=== PATIENT | female | born 1985 | race Caucasian/White ===

== ENCOUNTER 2016-06-26 06:53 | Inpatient (IN) | payer BC ==
[2016-06-26] MEDS ORDERED: fentaNYL 100 MCG/2 ML SDV IVPUSH PRN (07:50)
[2016-06-26] MEDS ORDERED: Sodium Chloride 0.9% 10 ML Syringe FLUSH PRN (07:50)
[2016-06-26] MEDS ORDERED: Ondansetron 4 MG/2 ML SDV IV PRN (07:50)
[2016-06-26] MEDS ORDERED: Acetaminophen 325 MG Tab PO PRN (07:50)
[2016-06-26] MEDS ORDERED: Calcium Carbonate 500 MG Tab.Chew PO PRN (07:50)
[2016-06-26] MEDS ORDERED: Misoprostol 50 MCG (1/2 of 100 MCG) Tab ONE (07:59)
--- NOTE | 2016-06-26 08:14 | PCM.LDHP ---
L&D History of Present Illness - General Date of Service: 06/26/16 (GLORIA-06/23/2016) Admit Problem/Dx: Patient Status Order with Admit Dx/Problem 06/26/16 07:00 Admission Status [Patient Status] [ADT] Routine Patient Status: Refer to Observation Admission Diagnosis/Problem: Reason for Admit: induction of labor Nurse Unit Type: Labor and Delivery Admitting Physician: Justyna Ahn Attending Physician: Justyna Ahn Medicare 96 Hour Certification Statement: This Patient is Admitted for Inpatient Services and is Medically Appropriate and Meets Medical Necessity for Inpatient Admission. I Reasonably Expect the Patient Will Require Inpatient Services That Span a Period of Time Over 2 Midnights. My Rationale for Medically Necessary Inpatient Care Will Be Found in the Admission History & Physical and Progress Notes. I Reasonably Expect the Patient to be Discharged or Transferred Within 96 Hours After Admission to This [facility]. 06/26/16 07:51 Patient Status [ADT] Routine Patient Status: Refer to Observation Admission Diagnosis/Problem: Reason for Admit: Induction of Labor Nurse Unit Type: Labor and Delivery Admitting Physician: Justyna Ahn Attending Physician: Justyna Ahn Medicare 96 Hour Certification Statement: This Patient is Admitted for Inpatient Services and is Medically Appropriate and Meets Medical Necessity for Inpatient Admission. I Reasonably Expect the Patient Will Require Inpatient Services That Span a Period of Time Over 2 Midnights. My Rationale for Medically Necessary Inpatient Care Will Be Found in the Admission History & Physical and Progress Notes. I Reasonably Expect the Patient to be Discharged or Transferred Within 96 Hours After Admission to This [facility]. Admission Diagnosis/Problem Admission Diagnosis/Problem Source of Information: Patient History Limitations: Reports: No limitations - History of Present Illness Associated Symptoms: Reports: N - Related Data Allergies/Adverse Reactions: Allergies Allergy/AdvReac Type Severity Reaction Status Date / Time codeine AdvReac Intermediate Vomiting Verified 04/20/14 22:33 Home Medications: Home Meds Docosahexanoic Acid [DHA] 100 mg PO DAILY 04/20/14 [History] Ferrous Gluconate 1 tab PO BID 04/20/14 [History] PNV95/Ferrous Fumarate/FA [ Multivitamins] 1 each PO DAILY 04/20/14 [ History] Ibuprofen [Motrin] 600 mg PO Q6H #1 tablet 04/22/14 [Rx] Past Medical History [employer] History: Reports: : 3 Para: 2 Other OB/BYN History: GLORIA-06/23/2016 Social & Family History - Tobacco Use Smoking Status *Q: Never Smoker - Alcohol Use Days Per Week of Alcohol Use: 0 - Recreational Drug Use Recreational Drug Use: No H&P Review of Systems - Review of Systems: Review Of Systems: See Below General: Reports: no symptoms HEENT: Reports: no symptoms Pulmonary: Reports: No Symptoms Cardiovascular: Reports: no symptoms Gastrointestinal: Reports: No symptoms Genitourinary: Reports: no symptoms Musculoskeletal: Reports: no symptoms Skin: Reports: no symptoms Psychiatric: Reports: no symptoms Neurological: Reports: No Symptoms Hematologic/Lymphatic: Reports: no symptoms Immunologic: Reports: no symptoms L&D Exam - Exam Exam: See Below - Vital Signs Weight: 99.79 kg - OB Specific movement: active heart tones: present - Winslow Score Winslow Score Cervix Position: Midposition Winslow Score Consistency: Soft Winslow Score Effacement: 51-70% Winslow Score Dilation: 1-2 cm Winslow Score Infant's Station: -2 Winslow Score Total: 7 - Exam General: alert, oriented HEENT: PERRLA, Conjunctiva clear, EACs clear, EOMI, Hearing intact, Mucosa moist & pink, Nares patent, Normal nasal septum, Posterior pharynx clear, Pupils equal, Pupils reactive, TMs clear Neck: supple, trachea midline Lungs: Clear to auscultation, Normal respiratory effort Cardiovascular: regular rate, regular rhythm Abdomen: normal bowel sounds, soft Genitourinary: Normal external exam Back Exam: normal inspection, full range of motion Extremities: normal inspection Skin: warm, dry, intact Neurological: cranial nerves intact, reflexes equal bilateral DTR: 2+: patella (L), patella (R) Psychiatric: alert, normal affect, normal mood - Patient Data Lab Results last 24 hrs: Laboratory Results - last 24 hr 06/26/16 06/26/16 06/26/16 Range/Units 07:23 07:24 07:30 WBC 9.0 (4.5-11.0) K/uL RBC 3.98 (3.30-5.50) M/uL Hgb 11.5 L (12.0-15.0) g/dL Hct 34.2 L (36.0-48.0) % MCV 86 (80-98) fL MCH 29 (27-31) pg MCHC 34 (32-36) % Plt Count 198 (150-400) K/uL Urine Color Yellow Urine Appearance Slightly cloudy Urine pH 6.5 (4.5-8.0) Ur Specific [place] 1.015 (1.008-1.030) Urine Protein Negative (NEGATIVE) mg/dL Urine Glucose (UA) Normal (NEGATIVE) mg/dL Urine Ketones Negative (NEGATIVE) mg/dL Urine Occult Blood Negative (NEGATIVE) Urine Nitrite Negative (NEGATIVE) Urine Bilirubin Negative (NEGATIVE) Urine Urobilinogen Normal (NORMAL) mg/dL Ur Leukocyte Esterase Negative (NEGATIVE) Urine RBC Not seen (0-5) Urine WBC Not seen (0-5) Ur Epithelial Cells Moderate Amorphous Sediment Not seen Urine Bacteria Rare Urine Mucus Moderate Urine Opiates Screen Negative (NEGATIVE) Ur Oxycodone Screen Negative (NEGATIVE) Urine Methadone Screen Negative (NEGATIVE) Ur Propoxyphene Screen Negative (NEGATIVE) Ur Barbiturates Screen Negative (NEGATIVE) Ur Tricyclics Screen Negative (NEGATIVE) Ur Phencyclidine Scrn Negative (NEGATIVE) Ur Amphetamine Screen Negative (NEGATIVE) U Methamphetamines Scrn Negative (NEGATIVE) Urine MDMA Screen Negative (NEGATIVE) U Benzodiazepines Scrn Negative (NEGATIVE) U Cocaine Metab Screen Negative (NEGATIVE) U Marijuana (THC) Screen Negative (NEGATIVE) Result Diagrams: 06/26/16 07:30 - Problem List (1) Positive GBS test SNOMED Code(s): 4007634515286, 4756161822022 ICD Code: B95.1 - STREPTOCOCCUS, GROUP B, CAUSING DISEASES CLASSD ELSWHR Status: Acute Current Visit: Yes (2) Elective induction of labor planned SNOMED Code(s): 148702278 ICD Code: EUF6045 - Status: Acute Current Visit: Yes (3) SNOMED Code(s): 76754927 ICD Code: Z33.1 - STATE, INCIDENTAL Status: Acute Current Visit : Yes Qualifiers: Weeks of gestation: 40 weeks Qualified Code(s): Z3A.40 - 40 weeks gestation of (4) Anemia of SNOMED Code(s): 71968918 ICD Code: O99.019 - ANEMIA COMPLICATING , UNSPECIFIED TRIMESTER Status: Chronic Priority: Medium Current Visit: No Problem List Initiated/Reviewed/Updated: Yes Orders Last 24hrs: Active Orders 24 hr Category Date Time Status Admission Status [Patient Status] [ADT] Routine ADT 06/26/16 07:00 Active Patient Status [ADT] Routine ADT 06/26/16 07:51 Ordered Ambulate [RC] PER UNIT ROUTINE Care 06/26/16 07:50 Ordered Bathe Patient [RC] ASDIRECTED Care 06/26/16 07:50 Ordered Communication Order [RC] ASDIRECTED Care 06/26/16 07:51 Ordered Heart Tones [RC] PER UNIT ROUTINE Care 06/26/16 07:51 Ordered Intake and Output [RC] PRN Care 06/26/16 07:50 Ordered May Shower [RC] ASDIRECTED Care 06/26/16 07:50 Ordered Notify Provider Vital Signs [RC] PRN Care 06/26/16 07:50 Ordered Notify Provider [RC] PRN Care 06/26/16 07:51 Ordered Up ad Chacorta [RC] ASDIRECTED Care 06/26/16 07:50 Ordered VTE/DVT Education [RC] Click to Edit Care 06/26/16 07:54 Ordered Vital Signs [RC] PER UNIT ROUTINE Care 06/26/16 07:51 Ordered CBC WITH AUTO DIFF [HEME] Routine Lab 06/27/16 06:00 Ordered Acetaminophen [Tylenol] Med 06/26/16 07:50 Ordered 650 mg PO Q4H PRN Calcium Carbonate [Tums] Med 06/26/16 07:50 Ordered 1,000 mg PO Q2HR PRN Misoprostol [Cytotec] Med 06/26/16 07:55 Once 50 mcg VAG ONETIME ONE Ondansetron [Zofran] Med 06/26/16 07:50 Ordered 4 mg IV Q4H PRN Penicillin G Potassium [Pfizerpen] 2.5 millunits Med 06/26/16 12:30 Ordered Sodium Chloride 0.9% [Normal Saline] 100 ml IV Q4H Penicillin G Potassium [Pfizerpen] 5 millunits Med 06/26/16 07:57 Ordered Sodium Chloride 0.9% [Normal Saline] 100 ml IV ONETIME Sodium Chloride 0.9% [Saline Flush] Med 06/26/16 07:50 Ordered 10 ml FLUSH ASDIRECTED PRN fentaNYL [Sublimaze] Med 06/26/16 07:50 Ordered 100 mcg IVPUSH Q1H PRN DVT/VTE Prophylaxis Reflex [OM.PC] Routine Oth 06/26/16 07:50 Ordered Saline Lock Insert [OM.PC] Routine Oth 06/26/16 07:51 Ordered Resuscitation Status Routine Resus Stat 06/26/16 07:50 Ordered Medication Orders Acetaminophen (Tylenol) 650 mg PO Q4H PRN PRN Reason: Pain (Mild 1-3) and fever Calcium Carbonate/Glycine (Tums) 1,000 mg PO Q2H PRN PRN Reason: Indigestion Fentanyl (Sublimaze) 100 mcg IVPUSH Q1H PRN PRN Reason: Pain (moderate 4-6) Penicillin G Potassium 5 (millunits/ Sodium Chloride) 100 mls @ 100 mls/hr IV ONETIME ONE Stop: 06/26/16 09:29 Penicillin G Potassium 2.5 (millunits/ Sodium Chloride) 50 mls @ 100 mls/hr IV Q4H BRYAN Misoprostol (Cytotec) 50 mcg VAG ONETIME ONE Stop: 06/26/16 08:16 Last Admin: 06/26/16 08:00 Dose: 50 mcg Ondansetron HCl (Zofran) 4 mg IV Q4H PRN PRN Reason: Nausea/Vomiting Sodium Chloride (Saline Flush) 10 ml FLUSH ASDIRECTED PRN PRN Reason: Keep Vein Open Assessment/Plan Comment:: 06/26/2016 31 yo at 40 3/7 weeks gestation with an GLORIA 06/23/2016 here for an elective induction SVE 2/70/-2 [place]-7 Cytotec-50mcg placed for induction FHTS category one Only occasional contraction noted before placement of cytotec Labs-A positive, Rubella Immune, RPR nonreactive, Hep B negative, HIV negative, GBS positive Plan- Monitor for active labor PCN G IV for GBS positive Pain management per patient request Up ad chacorta Intermittent FHT Regular diet Plan for a vaginal delivery
[2016-06-26] MEDS ORDERED: Misoprostol 50 MCG (1/2 of 100 MCG) Tab VAG ONE (08:15)
[2016-06-26] MEDS ORDERED: Penicillin G Potassium 5 MILLUNITS in Sodium Chloride 0.9% 100 ML IV ONE (08:30)
[2016-06-26] MEDS: Penicillin G Potassium 2.5 MILLUNITS in Sodium Chloride 0.9% 50 ML IV SCH ×2 (11:53→16:53)
--- NOTE | 2016-06-26 12:36 | PCM.PNLD ---
Labor Progress Note - VS & Meds Vital Signs: Last Vital Signs Temp 36.9 C 06/26/16 12:00 Pulse 82 06/26/16 12:00 Resp 16 06/26/16 12:00 BP 117/70 06/26/16 12:00 Pulse Ox 96 06/26/16 12:00 Active Medications: Current Medications Acetaminophen (Tylenol) 650 mg PO Q4H PRN PRN Reason: Pain (Mild 1-3) and fever Calcium Carbonate/Glycine (Tums) 1,000 mg PO Q2H PRN PRN Reason: Indigestion Fentanyl (Sublimaze) 100 mcg IVPUSH Q1H PRN PRN Reason: Pain (moderate 4-6) Penicillin G Potassium 2.5 (millunits/ Sodium Chloride) 50 mls @ 100 mls/hr IV Q4H BRYAN Last Admin: 06/26/16 11:53 Dose: 100 mls/hr Ondansetron HCl (Zofran) 4 mg IV Q4H PRN PRN Reason: Nausea/Vomiting Sodium Chloride (Saline Flush) 10 ml FLUSH ASDIRECTED PRN PRN Reason: Keep Vein Open Discontinued Medications Penicillin G Potassium 5 (millunits/ Sodium Chloride) 100 mls @ 100 mls/hr IV ONETIME ONE Stop: 06/26/16 09:29 Last Admin: 06/26/16 08:35 Dose: 100 mls/hr Misoprostol (Cytotec) 50 mcg VAG ONETIME ONE Stop: 06/26/16 08:16 Last Admin: 06/26/16 08:00 Dose: 50 mcg Misoprostol (Cytotec) Confirm Administered Dose 50 mcg .ROUTE .STK-MED ONE Stop: 06/26/16 08:00 Last Admin: 06/26/16 08:36 Dose: Not Given - Uterine Contractions Uterine Monitoring Mode: External [place] Contraction Frequency (min): 2-3 Contraction Duration (sec): 110 Contraction Intensity: Mild Uterine Resting Tone: Soft - Monitoring Monitor Mode: External Ultrasound - Vaginal Exam Dilation (cm): 3-4 Effacement (Percent): 80 Station: -2 Cervical Position: Anterior Sterile Vaginal Exam Performed By: Justyna Ahn Vaginal Exam Comment: cytotec placed - Labor Progress (Free Text) Labor Progress: 06/24/2016 SVE 3-4/80/-1 Labor progressing nicely Ctx every 2-3 minutes Penicillin times two doses will continue till delivery for GBS positive Plan- Continue to monitor for active labor Continue PCN per orders and protocol Pain management per patient request Plan for a vaginal delivery
[2016-06-26] MEDS ORDERED: Misoprostol 200 MCG Tab ONE (16:13)
[2016-06-26] MEDS ORDERED: Lidocaine 1% 50 ML MDV ONE (16:14)
[2016-06-26] MEDS ORDERED: Methylergonovine 0.2 MG/1 ML Amp ONE (16:14)
[2016-06-26] MEDS ORDERED: Lanolin 100% Cream 40 GM Tube TOP PRN (17:11)
[2016-06-26] MEDS ORDERED: Acetaminophen/HYDROcodone 325-5 MG Tab PO PRN (17:11)
[2016-06-26] MEDS ORDERED: Witch Hazel Medicated Pads 100/Jar TOP PRN (17:11)
[2016-06-26] MEDS ORDERED: Benzocaine 20% Top Spray 56 GM Bottle TOP PRN (17:11)
--- NOTE | 2016-06-26 17:11 | PCM.PNLD ---
Labor Progress Note - VS & Meds Vital Signs: Last Vital Signs Temp 36.9 C 06/26/16 12:00 Pulse 82 06/26/16 12:00 Resp 16 06/26/16 12:00 BP 117/70 06/26/16 12:00 Pulse Ox 96 06/26/16 12:00 Active Medications: Current Medications Acetaminophen (Tylenol) 650 mg PO Q4H PRN PRN Reason: Pain (Mild 1-3) and fever Calcium Carbonate/Glycine (Tums) 1,000 mg PO Q2H PRN PRN Reason: Indigestion Fentanyl (Sublimaze) 100 mcg IVPUSH Q1H PRN PRN Reason: Pain (moderate 4-6) Last Admin: 06/26/16 15:08 Dose: 100 mcg Penicillin G Potassium 2.5 (millunits/ Sodium Chloride) 50 mls @ 100 mls/hr IV Q4H BRYAN Last Admin: 06/26/16 16:53 Dose: Not Given Ondansetron HCl (Zofran) 4 mg IV Q4H PRN PRN Reason: Nausea/Vomiting Last Admin: 06/26/16 14:53 Dose: 4 mg Sodium Chloride (Saline Flush) 10 ml FLUSH ASDIRECTED PRN PRN Reason: Keep Vein Open Discontinued Medications Penicillin G Potassium 5 (millunits/ Sodium Chloride) 100 mls @ 100 mls/hr IV ONETIME ONE Stop: 06/26/16 09:29 Last Admin: 06/26/16 08:35 Dose: 100 mls/hr Oxytocin/Sodium Chloride (Pitocin In Ns 20 Units/1,000 Ml) Confirm Administered Dose 20 unit in 1,000 mls @ as directed .ROUTE .STK-MED ONE Stop: 06/26/16 13:11 Last Admin: 06/26/16 16:12 Dose: 999 unit Lidocaine HCl (Xylocaine 1%) Confirm Administered Dose 100 ml .ROUTE .STK-MED ONE Stop: 06/26/16 16:15 Last Admin: 06/26/16 16:51 Dose: Not Given Methylergonovine Maleate (Methergine) Confirm Administered Dose 0.2 mg .ROUTE .STK-MED ONE Stop: 06/26/16 16:15 Last Admin: 06/26/16 16:52 Dose: Not Given Misoprostol (Cytotec) 50 mcg VAG ONETIME ONE Stop: 06/26/16 08:16 Last Admin: 06/26/16 08:00 Dose: 50 mcg Misoprostol (Cytotec) Confirm Administered Dose 50 mcg .ROUTE .STK-MED ONE Stop: 06/26/16 08:00 Last Admin: 06/26/16 08:36 Dose: Not Given Misoprostol (Cytotec) Confirm Administered Dose 800 mcg .ROUTE .STK-MED ONE Stop: 06/26/16 16:14 Last Admin: 06/26/16 16:52 Dose: Not Given - Uterine Contractions Uterine Monitoring Mode: External [place] Contraction Frequency (min): 2-4 Contraction Duration (sec): 70 Contraction Intensity: Moderate to Strong Uterine Resting Tone: Soft - Monitoring Monitor Mode: External Ultrasound - Vaginal Exam Dilation (cm): 7 Effacement (Percent): 95 Station: 0 Cervical Position: Midposition Sterile Vaginal Exam Performed By: Justyna Ahn Vaginal Exam Comment: recheck by debby fentanyl given - Labor Progress (Free Text) Labor Progress: 06/26/2016 @ approx 1520 Nurse called stating maybe felt caput-CNM came and SVE 6-7 caput/90/-1 Clear fluid moderately leaking Tolerating pain with position, tub, and IV medications Continue to monitor FHTs and CTX Pain management per patient request Plan for a vaginal delivery
--- NOTE | 2016-06-26 17:31 | PCM.DEL ---
L & D Note - General Info Date of Service: 06/26/16 Mother's Due Date: 06/23/16 - Delivery Note Labor: induced by ARM (cytotec times one dose) Cervical Ripening Method: Misoprostil Delivery Outcome: Livebirth Infant Delivery Method: Spontaneous Vaginal Delivery Delivery Mode: Spontaneous Presentation: Left Occiput Anterior (KOFI) Nuchal cord: none Anesthesia Type: None Amniotic Fluid Description: Clear Episiotomy Type: None Laceration: other (two labial skid yuan note repaired, not bleeding) Placenta: intact, spontaneous Cord: 3 vessels Estimated blood loss: 300 : bulb syringe, stimulated, warmed, blanket used, warmer used Score 1 min: 7 Score 5 min: 8 Score 10 min: 8 Post Delivery Events: Shoulder Dystocia Second Stage Interventions: Reports: Encouragement Given, Pushing Effectively, Pushing, McRobert's Position, Pushing, Stirrups/Leg Supports Delivery Comments (Free Text/Narrative):: 06/26/2016 31 yo G3 now P3 @ 40 3/7 gestational weeks delivered @ 1611 a viable male by normal spontaneous vaginal in KOFI position. Shoulder dystocia was noted after delivery of head at 1610 and no release of shoulder. Bed was placed flat, staff assist button was hit, Mylene and Suprapubic pressure was used and anterior shoulder was released after 60 seconds. Infant was then placed on mothers abdomen, dried, stimulated, and cord was double clamped and cut by CNM then was taken to warmer for initial assessment. APGARS- 7/8/8, Weight- 9lbs 15 oz, Length 21.5 inches, 3 vessel cord. began to cry vigorously and pink up in color on warmer. Placenta then came spontaneously intact. Two small skid yuan on each side of labia, not bleeding and not repaired. No lacerations noted to cervix, rectum, or perineum. EBL 300ml. Mother stable in labor room with now skin to skin. Possible crepitus in left clavicle of infant-will Xray and follow results. - General Info Date of Service: 06/26/16 Admission Dx/Problem (Free Text): Patient Status Order with Admit Dx/Problem 06/26/16 07:00 Admission Status [Patient Status] [ADT] Routine Patient Status: Refer to Observation Admission Diagnosis/Problem: Reason for Admit: induction of labor Nurse Unit Type: Labor and Delivery Admitting Physician: Justyna Ahn Attending Physician: Justyna Ahn Medicare 96 Hour Certification Statement: This Patient is Admitted for Inpatient Services and is Medically Appropriate and Meets Medical Necessity for Inpatient Admission. I Reasonably Expect the Patient Will Require Inpatient Services That Span a Period of Time Over 2 Midnights. My Rationale for Medically Necessary Inpatient Care Will Be Found in the Admission History & Physical and Progress Notes. I Reasonably Expect the Patient to be Discharged or Transferred Within 96 Hours After Admission to This [facility]. 06/26/16 07:51 Patient Status [ADT] Routine Patient Status: Refer to Observation Admission Diagnosis/Problem: Reason for Admit: Induction of Labor Nurse Unit Type: Labor and Delivery Admitting Physician: Justyna Ahn Attending Physician: Justyna Ahn Medicare 96 Hour Certification Statement: This Patient is Admitted for Inpatient Services and is Medically Appropriate and Meets Medical Necessity for Inpatient Admission. I Reasonably Expect the Patient Will Require Inpatient Services That Span a Period of Time Over 2 Midnights. My Rationale for Medically Necessary Inpatient Care Will Be Found in the Admission History & Physical and Progress Notes. I Reasonably Expect the Patient to be Discharged or Transferred Within 96 Hours After Admission to This [facility]. Admission Diagnosis/Problem Admission Diagnosis/Problem Functional Status: Reports: pain controlled - Review of Systems General: Reports: No Symptoms HEENT: Reports: no symptoms Pulmonary: Reports: no symptoms Cardiovascular: Reports: No Symptoms Gastrointestinal: Reports: No symptoms Genitourinary: Reports: no symptoms Musculoskeletal: Reports: no symptoms Skin: Reports: no symptoms Neurological: Reports: No Symptoms Psychiatric: Reports: no symptoms - Patient Data Vitals - most recent: Last Vital Signs Temp 36.9 C 06/26/16 12:00 Pulse 82 06/26/16 12:00 Resp 16 06/26/16 12:00 BP 117/70 06/26/16 12:00 Pulse Ox 96 06/26/16 12:00 Weight - most recent: 99.79 kg I&O - last 24 hours: Intake & Output 06/26/16 06/26/16 06/26/16 06:59 14:59 22:59 Intake Total 150 Balance 150 Lab Results last 24 hrs: Laboratory Results - last 24 hr 06/26/16 06/26/1606/26/17 Range/Units 07:23 07:24 07:30 WBC 9.0 (4.5-11.0) K/uL RBC 3.98 (3.30-5.50) M/uL Hgb 11.5 L (12.0-15.0) g/dL Hct 34.2 L (36.0-48.0) % MCV 86 (80-98) fL MCH 29 (27-31) pg MCHC 34 (32-36) % Plt Count 198 (150-400) K/uL Urine Color Yellow Urine Appearance Slightly cloudy Urine pH 6.5 (4.5-8.0) Ur Specific [place] 1.015 (1.008-1.030) Urine Protein Negative (NEGATIVE) mg/dL Urine Glucose (UA) Normal (NEGATIVE) mg/dL Urine Ketones Negative (NEGATIVE) mg/dL Urine Occult Blood Negative (NEGATIVE) Urine Nitrite Negative (NEGATIVE) Urine Bilirubin Negative (NEGATIVE) Urine Urobilinogen Normal (NORMAL) mg/dL Ur Leukocyte Esterase Negative (NEGATIVE) Urine RBC Not seen (0-5) Urine WBC Not seen (0-5) Ur Epithelial Cells Moderate Amorphous Sediment Not seen Urine Bacteria Rare Urine Mucus Moderate Urine Opiates Screen Negative (NEGATIVE) Ur Oxycodone Screen Negative (NEGATIVE) Urine Methadone Screen Negative (NEGATIVE) Ur Propoxyphene Screen Negative (NEGATIVE) Ur Barbiturates Screen Negative (NEGATIVE) Ur Tricyclics Screen Negative (NEGATIVE) Ur Phencyclidine Scrn Negative (NEGATIVE) Ur Amphetamine Screen Negative (NEGATIVE) U Methamphetamines Scrn Negative (NEGATIVE) Urine MDMA Screen Negative (NEGATIVE) U Benzodiazepines Scrn Negative (NEGATIVE) U Cocaine Metab Screen Negative (NEGATIVE) U Marijuana (THC) Screen Negative (NEGATIVE) Med Orders - Current: Current Medications Acetaminophen (Tylenol) 650 mg PO Q4H PRN PRN Reason: Pain (Mild 1-3) and fever Hydrocodone Bitart/Acetaminophen (Zap 325-5 Mg) 1 - 2 tab PO Q4H PRN PRN Reason: Pain (moderate 4-6) Benzocaine (Qyya-S-Nkrjvab 20% [place]) 0 gm TOP Q4H PRN PRN Reason: Perineal Comfort Measure Calcium Carbonate/Glycine (Tums) 1,000 mg PO Q2H PRN PRN Reason: Indigestion Emollient Ointment (Lansinoh Hpa) 0 gm TOP ASDIRECTED PRN PRN Reason: Sore Nipples Fentanyl (Sublimaze) 100 mcg IVPUSH Q1H PRN PRN Reason: Pain (moderate 4-6) Last Admin: 06/26/16 15:08 Dose: 100 mcg Ferrous Sulfate (Ferrous Sulfate) 325 mg PO WITHBREAKFAST [facility] Penicillin G Potassium 2.5 (millunits/ Sodium Chloride) 50 mls @ 100 mls/hr IV Q4H [facility] Last Admin: 06/26/16 16:53 Dose: Not Given Oxytocin/Sodium Chloride (Pitocin In Ns 20 Units/1,000 Ml) 20 unit in 1,000 mls @ 2,997 mls/hr IV ONETIME ONE; 999 MUNITS/MIN PRN Reason: Protocol Stop: 06/26/16 17:37 Ibuprofen (Motrin) 600 mg PO Q6H PRN PRN Reason: mild pain or fever Ondansetron HCl (Zofran) 4 mg IV Q4H PRN PRN Reason: Nausea/Vomiting Last Admin: 06/26/16 14:53 Dose: 4 mg Prenat Multivit/[place]/Iron/Folic Ac ( Plus Iron) 1 each PO DAILY [facility] Sodium Chloride (Saline Flush) 10 ml FLUSH ASDIRECTED PRN PRN Reason: Keep Vein Open Witjuvenal Santos (Tucks) 1 pad TOP ASDIRECTED PRN PRN Reason: Hemorrhoids Discontinued Medications Penicillin G Potassium 5 (millunits/ Sodium Chloride) 100 mls @ 100 mls/hr IV ONETIME ONE Stop: 06/26/16 09:29 Last Admin: 06/26/16 08:35 Dose: 100 mls/hr Oxytocin/Sodium Chloride (Pitocin In Ns 20 Units/1,000 Ml) Confirm Administered Dose 20 unit in 1,000 mls @ as directed .ROUTE .STK-MED ONE Stop: 06/26/16 13:11 Last Admin: 06/26/16 16:12 Dose: 999 unit Lidocaine HCl (Xylocaine 1%) Confirm Administered Dose 100 ml .ROUTE .STK-MED ONE Stop: 06/26/16 16:15 Last Admin: 06/26/16 16:51 Dose: Not Given Methylergonovine Maleate (Methergine) Confirm Administered Dose 0.2 mg .ROUTE .STK-MED ONE Stop: 06/26/16 16:15 Last Admin: 06/26/16 16:52 Dose: Not Given Misoprostol (Cytotec) 50 mcg VAG ONETIME ONE Stop: 06/26/16 08:16 Last Admin: 06/26/16 08:00 Dose: 50 mcg Misoprostol (Cytotec) Confirm Administered Dose 50 mcg .ROUTE .STK-MED ONE Stop: 06/26/16 08:00 Last Admin: 06/26/16 08:36 Dose: Not Given Misoprostol (Cytotec) Confirm Administered Dose 800 mcg .ROUTE .STK-MED ONE Stop: 06/26/16 16:14 Last Admin: 06/26/16 16:52 Dose: Not Given - Exam General: alert, oriented HEENT: Pupils equal, Pupils reactive, EOMI, Mucous membr. moist/pink Neck: supple Lungs: Clear to auscultation, Normal respiratory effort Cardiovascular: Regular Rate, Regular Rhythm Abdomen: bowel sounds present, soft, no tenderness, no distension (Female) Exam: Normal external exam, Normal bimanual exam, Enlarged uterus, Vaginal bleeding Back Exam: normal inspection, full range of motion Extremities: no edema Skin: warm, dry, intact Wound/Incisions: other (each side labial skids-not bleeding not repaired) Neurological: no new focal deficit Psy/Mental Status: alert, normal affect, normal mood - Problem List & Annotations (1) Positive GBS test SNOMED Code(s): 2264871789256, 5840293747979 Code(s): B95.1 - STREPTOCOCCUS, GROUP B, CAUSING DISEASES CL[facility]SD [facility] Status: Acute Current Visit: Yes (2) Elective induction of labor planned SNOMED Code(s): 973597069 Code(s): QAF6770 - Status: Acute Current Visit: Yes (3) SNOMED Code(s): 29418883 Code(s): Z33.1 - STATE, INCIDENTAL Status: Acute Current Visit: Yes Qualifiers: Weeks of gestation: 40 weeks Qualified Code(s): Z3A.40 - 40 weeks gestation of (4) Anemia of SNOMED Code(s): 47129296 Code(s): O99.019 - ANEMIA COMPLICATING , UNSPECIFIED TRIMESTER Status: Chronic Priority: Medium Current Visit: No (5) Shoulder dystocia during labor and delivery SNOMED Code(s): 52840717 Code(s): O66.0 - OBSTRUCTED LABOR DUE TO SHOULDER DYSTOCIA Status: Acute Current Visit: Yes (6) Vaginal delivery SNOMED Code(s): 934611053 Code(s): O80 - ENCOUNTER FOR FULL-TERM UNCOMPLICATED DELIVERY Status: Acute Current Visit: Yes (7) (infant) SNOMED Code(s): 320648948 Code(s): Z78.9 - OTHER SPECIFIED HEALTH STATUS Status: Acute Current Visit: Yes - Problem List Review Problem List Initiated/Reviewed/Updated: Yes - My Orders Last 24 Hours: My Active Orders 06/26/16 07:00 Admission Status [Patient Status] [ADT] Routine 06/26/16 07:50 Ambulate [RC] PER UNIT ROUTINE Bathe Patient [RC] ASDIRECTED Intake and Output [RC] PRN May Shower [RC] ASDIRECTED Notify Provider Vital Signs [RC] PRN Up ad Chacorta [RC] ASDIRECTED Acetaminophen [Tylenol] 650 mg PO Q4H PRN Calcium Carbonate [Tums] 1,000 mg PO Q2H PRN Ondansetron [Zofran] 4 mg IV Q4H PRN Sodium Chloride 0.9% [Saline Flush] 10 ml FLUSH ASDIRECTED PRN fentaNYL [Sublimaze] 100 mcg IVPUSH Q1H PRN DVT/VTE Prophylaxis Reflex [OM.PC] Routine Resuscitation Status Routine 06/26/16 07:51 Patient Status [ADT] Routine Communication Order [RC] ASDIRECTED Notify Provider [RC] PRN Vital Signs [RC] PER UNIT ROUTINE Saline Lock Insert [OM.PC] Routine 06/26/16 07:54 VTE/DVT Education [RC] Click to Edit 06/26/16 12:30 Penicillin G Potassium [Pfizerpen] 2.5 millunits Sodium Chloride 0.9% [Normal Saline] 50 ml IV Q4H 06/26/16 17:11 Patient Status [ADT] Routine Vital Signs [RC] PFP Acetaminophen/HYDROcodone [Zap 325-5 MG] 1 - 2 tab PO Q4H PRN Benzocaine [Ajop-N-Mplwfdz 20% [place]] See Dose Instructions TOP Q4H PRN Ibuprofen [Motrin] 600 mg PO Q6H PRN Lanolin [Lansinoh HPA] 0 gm TOP ASDIRECTED PRN Witch Danielle [Tucks] 1 pad TOP ASDIRECTED PRN Assess Lochia [WOMSER] Per Unit Routine 06/26/16 17:14 Ice Therapy [OM.PC] Per Unit Routine Perineal Care [OM.PC] Per Unit Routine Sitz Bath [OM.PC] Per Unit Routine 06/26/16 17:17 Oxytocin/Normal Saline [Pitocin in NS 20 Units/1,000 ML] 20 unit in 1,000 ml IV ONETIME 06/26/16 Dinner Regular Diet [DIET] 06/27/16 06:00 CBC WITH AUTO DIFF [HEME] Routine 06/27/16 08:00 Ferrous Sulfate 325 mg PO WITHBREAKFAST 06/27/16 09:00 Vit with Ca/FA/Iron [ Plus Iron] 1 each PO DAILY - Assessment Assessment:: 06/26/2016 31 yo G3 now P3 @ 40 3/7 gestational weeks normal spontaneous vaginal delivery with a shoulder dystocia-relieved by Mylene, Suprapubic maneuvers. Labs- A positive Rubella Immune Hep B negative HIV negative RPR nonreactive Hgb 11.5 GBS positive-treated - Plan Plan:: 06/26/2016 31 yo at 40 3/7 weeks gestation with an GLORIA 06/23/2016 here for an elective induction SVE 2/70/-2 Bishops-7 Cytotec-50mcg placed for induction FHTS category one Only occasional contraction noted before placement of cytotec Labs-A positive, Rubella Immune, RPR nonreactive, Hep B negative, HIV negative, GBS positive Plan- Monitor for active labor PCN G IV for GBS positive Pain management per patient request Up ad chacorta Intermittent FHT Regular diet Plan for a vaginal delivery 06/26/2016 Routine Cares Encourage and Support Plan for a 48 hour stay due to GBS positive
[2016-06-26] MEDS: Ibuprofen 600 MG Tab PO PRN ×2 (17:38→22:21)
[2016-06-27] MEDS: Ibuprofen 600 MG Tab PO PRN ×3 (04:46→22:12)
--- NOTE | 2016-06-27 08:32 | PCM.PNPP ---
- General Info Date of Service: 06/27/16 Admission Dx/Problem (Free Text): Patient Status Order with Admit Dx/Problem 06/26/16 07:00 Admission Status [Patient Status] [ADT] Routine Patient Status: Refer to Observation Admission Diagnosis/Problem: Reason for Admit: induction of labor Nurse Unit Type: Labor and Delivery Admitting Physician: Justyna Ahn Attending Physician: Justyna Ahn Medicare 96 Hour Certification Statement: This Patient is Admitted for Inpatient Services and is Medically Appropriate and Meets Medical Necessity for Inpatient Admission. I Reasonably Expect the Patient Will Require Inpatient Services That Span a Period of Time Over 2 Midnights. My Rationale for Medically Necessary Inpatient Care Will Be Found in the Admission History & Physical and Progress Notes. I Reasonably Expect the Patient to be Discharged or Transferred Within 96 Hours After Admission to This Critical [facility] Hospital. 06/26/16 07:51 Patient Status [ADT] Routine Patient Status: Refer to Observation Admission Diagnosis/Problem: Reason for Admit: Induction of Labor Nurse Unit Type: Labor and Delivery Admitting Physician: Justyna Ahn Attending Physician: Justyna Ahn Medicare 96 Hour Certification Statement: This Patient is Admitted for Inpatient Services and is Medically Appropriate and Meets Medical Necessity for Inpatient Admission. I Reasonably Expect the Patient Will Require Inpatient Services That Span a Period of Time Over 2 Midnights. My Rationale for Medically Necessary Inpatient Care Will Be Found in the Admission History & Physical and Progress Notes. I Reasonably Expect the Patient to be Discharged or Transferred Within 96 Hours After Admission to This [facility]. Admission Diagnosis/Problem Admission Diagnosis/Problem Functional Status: Reports: pain controlled - Review of Systems General: Reports: No Symptoms HEENT: Reports: no symptoms Pulmonary: Reports: no symptoms Cardiovascular: Reports: No Symptoms Gastrointestinal: Reports: No symptoms Genitourinary: Reports: no symptoms Musculoskeletal: Reports: no symptoms Skin: Reports: no symptoms Neurological: Reports: No Symptoms Psychiatric: Reports: no symptoms - Patient Data Vital Signs - most recent: Last Vital Signs Temp 36.3 C 06/27/16 04:00 Pulse 68 06/27/16 04:00 Resp 16 06/27/16 04:00 BP 101/59 L 06/27/16 04:00 Pulse Ox 98 06/27/16 04:00 Weight - most recent: 99.79 kg I&O - last 24 hours: Intake & Output 06/26/16 06/27/16 06/27/16 22:59 06:59 14:59 Intake Total 1999 650 Balance 1999 650 Lab Results - last 24 hrs: Laboratory Results - last 24 hr 06/27/16 Range/Units 06:00 WBC 10.7 (4.5-11.0) K/uL RBC 3.69 (3.30-5.50) M/uL Hgb 10.8 L (12.0-15.0) g/dL Hct 32.1 L (36.0-48.0) % MCV 87 (80-98) fL MCH 29 (27-31) pg MCHC 34 (32-36) % Plt Count 171 (150-400) K/uL Neut % (Auto) 74 H (36-66) % Lymph % (Auto) 17 L (24-44) % [place] % (Auto) 8 H (2-6) % Eos % (Auto) 1 L (2-4) % Baso % (Auto) 0 (0-1) % Med Orders - Current: Current Medications Acetaminophen (Tylenol) 650 mg PO Q4H PRN PRN Reason: Pain (Mild 1-3) and fever Last Admin: 06/26/16 18:44 Dose: 650 mg Hydrocodone Bitart/Acetaminophen ([place] 325-5 Mg) 1 - 2 tab PO Q4H PRN PRN Reason: Pain (moderate 4-6) Benzocaine (Ukow-W-Gzaobgt 20% [place]) 0 gm TOP Q4H PRN PRN Reason: Perineal Comfort Measure Calcium Carbonate/Glycine (Tums) 1,000 mg PO Q2H PRN PRN Reason: Indigestion Emollient Ointment (Lansinoh Hpa) 0 gm TOP ASDIRECTED PRN PRN Reason: Sore Nipples Fentanyl (Sublimaze) 100 mcg IVPUSH Q1H PRN PRN Reason: Pain (moderate 4-6) Last Admin: 06/26/16 15:08 Dose: 100 mcg Ferrous Sulfate (Ferrous Sulfate) 325 mg PO WITHBREAKFAST [facility] Ibuprofen (Motrin) 600 mg PO Q6H PRN PRN Reason: mild pain or fever Last Admin: 06/27/16 04:46 Dose: 600 mg Ondansetron HCl (Zofran) 4 mg IV Q4H PRN PRN Reason: Nausea/Vomiting Last Admin: 06/26/16 14:53 Dose: 4 mg Prenat Multivit/[place]/Iron/Folic Ac ( Plus Iron) 1 each PO DAILY [facility] Sodium Chloride (Saline Flush) 10 ml FLUSH ASDIRECTED PRN PRN Reason: Keep Vein Open Witjuvenal Santos (Tucks) 1 pad TOP ASDIRECTED PRN PRN Reason: Hemorrhoids Discontinued Medications Penicillin G Potassium 5 (millunits/ Sodium Chloride) 100 mls @ 100 mls/hr IV ONETIME ONE Stop: 06/26/16 09:29 Last Admin: 06/26/16 08:35 Dose: 100 mls/hr Penicillin G Potassium 2.5 (millunits/ Sodium Chloride) 50 mls @ 100 mls/hr IV Q4H [facility] Last Admin: 06/26/16 16:53 Dose: Not Given Oxytocin/Sodium Chloride (Pitocin In Ns 20 Units/1,000 Ml) Confirm Administered Dose 20 unit in 1,000 mls @ as directed .ROUTE .STK-MED ONE Stop: 06/26/16 13:11 Last Admin: 06/26/16 16:12 Dose: 999 unit Oxytocin/Sodium Chloride (Pitocin In Ns 20 Units/1,000 Ml) 20 unit in 1,000 mls @ 2,997 mls/hr IV ONETIME ONE; 999 MUNITS/MIN PRN Reason: Protocol Stop: 06/26/16 17:37 Last Admin: 06/26/16 18:45 Dose: Not Given Lidocaine HCl (Xylocaine 1%) Confirm Administered Dose 100 ml .ROUTE .STK-MED ONE Stop: 06/26/16 16:15 Last Admin: 06/26/16 16:51 Dose: Not Given Methylergonovine Maleate (Methergine) Confirm Administered Dose 0.2 mg .ROUTE .STK-MED ONE Stop: 06/26/16 16:15 Last Admin: 06/26/16 16:52 Dose: Not Given Misoprostol (Cytotec) 50 mcg VAG ONETIME ONE Stop: 06/26/16 08:16 Last Admin: 06/26/16 08:00 Dose: 50 mcg Misoprostol (Cytotec) Confirm Administered Dose 50 mcg .ROUTE .STK-MED ONE Stop: 06/26/16 08:00 Last Admin: 06/26/16 08:36 Dose: Not Given Misoprostol (Cytotec) Confirm Administered Dose 800 mcg .ROUTE .STK-MED ONE Stop: 06/26/16 16:14 Last Admin: 06/26/16 16:52 Dose: Not Given - Interaction Infant Disposition, : at Bedside Interaction: Holding Feeding: Breastfed ; Nursed Well Support Person: - Recovery Exam Fundal Tone: Firms with Massage Fundal Level: At Umbilicus Fundal Placement: Midline Lochia Amount: Moderate Lochia Color: Rubra/Red Perineum Description: Intact, Minimal Bruising/Swelling Episiotomy/Laceration: None Bladder Status: Voiding - Exam General: alert, oriented HEENT: Pupils equal Neck: supple Lungs: Clear to auscultation, Normal respiratory effort Cardiovascular: Regular Rate, Regular Rhythm Abdomen: bowel sounds present, soft, no tenderness, no distension Extremities: no edema Skin: warm, dry, intact Neurological: no new focal deficit Psy/Mental Status: alert, normal affect, normal mood - Problem List & Annotations (1) Positive GBS test SNOMED Code(s): 8334050895936, 9175864055827 Code(s): B95.1 - STREPTOCOCCUS, GROUP B, CAUSING DISEASES CLASSD [facility] Status: Acute Current Visit: Yes (2) Elective induction of labor planned SNOMED Code(s): 147459221 Code(s): WFM1889 - Status: Acute Current Visit: Yes (3) SNOMED Code(s): 58184586 Code(s): Z33.1 - STATE, INCIDENTAL Status: Acute Current Visit: Yes Qualifiers: Weeks of gestation: 40 weeks Qualified Code(s): Z3A.40 - 40 weeks gestation of (4) Anemia of SNOMED Code(s): 51768879 Code(s): O99.019 - ANEMIA COMPLICATING , UNSPECIFIED TRIMESTER Status: Chronic Priority: Medium Current Visit: No (5) Shoulder dystocia during labor and delivery SNOMED Code(s): 86818930 Code(s): O66.0 - OBSTRUCTED LABOR DUE TO SHOULDER DYSTOCIA Status: Acute Current Visit: Yes (6) Vaginal delivery SNOMED Code(s): 783253695 Code(s): O80 - ENCOUNTER FOR FULL-TERM UNCOMPLICATED DELIVERY Status: Acute Current Visit: Yes (7) (infant) SNOMED Code(s): 107862549 Code(s): Z78.9 - OTHER SPECIFIED HEALTH STATUS Status: Acute Current Visit: Yes - Problem List Review Problem List Initiated/Reviewed/Updated: Yes - My Orders Last 24 Hours: My Active Orders 06/26/16 07:50 Ambulate [RC] PER UNIT ROUTINE Bathe Patient [RC] ASDIRECTED Intake and Output [RC] PRN May Shower [RC] ASDIRECTED Notify Provider Vital Signs [RC] PRN Up ad Chacorta [RC] ASDIRECTED Acetaminophen [Tylenol] 650 mg PO Q4H PRN Calcium Carbonate [Tums] 1,000 mg PO Q2H PRN Ondansetron [Zofran] 4 mg IV Q4H PRN Sodium Chloride 0.9% [Saline Flush] 10 ml FLUSH ASDIRECTED PRN fentaNYL [Sublimaze] 100 mcg IVPUSH Q1H PRN DVT/VTE Prophylaxis Reflex [OM.PC] Routine Resuscitation Status Routine 06/26/16 07:51 Patient Status [ADT] Routine Notify Provider [RC] PRN Vital Signs [RC] PER UNIT ROUTINE Saline Lock Insert [OM.PC] Routine 06/26/16 07:54 VTE/DVT Education [RC] Click to Edit 06/26/16 17:11 Patient Status [ADT] Routine Vital Signs [RC] PFP Acetaminophen/HYDROcodone [[place] 325-5 MG] 1 - 2 tab PO Q4H PRN Benzocaine [Kdtu-T-Lzdelur 20% [place]] See Dose Instructions TOP Q4H PRN Ibuprofen [Motrin] 600 mg PO Q6H PRN Lanolin [Lansinoh HPA] 0 gm TOP ASDIRECTED PRN Witch Danielle [Tucks] 1 pad TOP ASDIRECTED PRN Assess Lochia [WOMSER] Per Unit Routine 06/26/16 17:14 Ice Therapy [OM.PC] Per Unit Routine Perineal Care [OM.PC] Per Unit Routine Sitz Bath [OM.PC] Per Unit Routine 06/26/16 Dinner Regular Diet [DIET] 06/27/16 08:00 Ferrous Sulfate 325 mg PO WITHBREAKFAST 06/27/16 09:00 Vit with Ca/FA/Iron [ Plus Iron] 1 each PO DAILY - Assessment Assessment:: 06/26/2016 31 yo G3 now P3 @ 40 3/7 gestational weeks normal spontaneous vaginal delivery with a shoulder dystocia-relieved by Mylene, Suprapubic maneuvers. Labs- A positive Rubella Immune Hep B negative HIV negative RPR nonreactive Hgb 11.5 GBS positive-treated 06/27/[address] [facility] Hgb-10.8 GBS positive-treated Fundus firm, bleeding decreased, no perineal swelling Pain managed with oral pain medication Voiding and passing gas - Plan Plan:: 06/26/2016 31 yo at 40 3/7 weeks gestation with an GLORIA 06/23/2016 here for an elective induction SVE 2/70/-2 Bishops-7 Cytotec-50mcg placed for induction FHTS category one Only occasional contraction noted before placement of cytotec Labs-A positive, Rubella Immune, RPR nonreactive, Hep B negative, HIV negative, GBS positive Plan- Monitor for active labor PCN G IV for GBS positive Pain management per patient request Up ad chacorta Intermittent FHT Regular diet Plan for a vaginal delivery 06/26/2016 Routine Cares Encourage and Support Plan for a 48 hour stay due to GBS positive 06/27/2016 Continue Routine Cares Continue to support and encourage Hgb 10.8-continue taking iron and vitamin Plan discharge tomorrow due to GBS positive at delivery
[2016-06-27] MEDS: Prenatal Multivitamin with Calcium/Folic Acid/Iron Tab PO SCH (08:35)
[2016-06-27] MEDS: Ferrous Sulfate 325 MG Tab PO SCH (08:35)
[2016-06-27] MEDS ORDERED: Docusate Sodium 100 MG Cap PO PRN ×2 (15:38→15:43)
[2016-06-28] MEDS: Prenatal Multivitamin with Calcium/Folic Acid/Iron Tab PO SCH ×2 (07:53→11:39)
[2016-06-28] MEDS: Ferrous Sulfate 325 MG Tab PO SCH (07:53)
--- NOTE | 2016-06-28 09:31 | PCM.PNPP ---
- General Info Date of Service: 06/28/16 ( day 2) Admission Dx/Problem (Free Text): Patient Status Order with Admit Dx/Problem 06/26/16 07:00 Admission Status [Patient Status] [ADT] Routine Patient Status: Refer to Observation Admission Diagnosis/Problem: Reason for Admit: induction of labor Nurse Unit Type: Labor and Delivery Admitting Physician: Justyna Ahn Attending Physician: Jusytna Ahn Medicare 96 Hour Certification Statement: This Patient is Admitted for Inpatient Services and is Medically Appropriate and Meets Medical Necessity for Inpatient Admission. I Reasonably Expect the Patient Will Require Inpatient Services That Span a Period of Time Over 2 Midnights. My Rationale for Medically Necessary Inpatient Care Will Be Found in the Admission History & Physical and Progress Notes. I Reasonably Expect the Patient to be Discharged or Transferred Within 96 Hours After Admission to This [facility]. 06/26/16 07:51 Patient Status [ADT] Routine Patient Status: Refer to Observation Admission Diagnosis/Problem: Reason for Admit: Induction of Labor Nurse Unit Type: Labor and Delivery Admitting Physician: Justyna Ahn Attending Physician: Justyna Ahn Medicare 96 Hour Certification Statement: This Patient is Admitted for Inpatient Services and is Medically Appropriate and Meets Medical Necessity for Inpatient Admission. I Reasonably Expect the Patient Will Require Inpatient Services That Span a Period of Time Over 2 Midnights. My Rationale for Medically Necessary Inpatient Care Will Be Found in the Admission History & Physical and Progress Notes. I Reasonably Expect the Patient to be Discharged or Transferred Within 96 Hours After Admission to This [facility]. Admission Diagnosis/Problem Admission Diagnosis/Problem Functional Status: Reports: pain controlled - Review of Systems General: Reports: No Symptoms HEENT: Reports: no symptoms Pulmonary: Reports: no symptoms Cardiovascular: Reports: No Symptoms Gastrointestinal: Reports: No symptoms Genitourinary: Reports: no symptoms Musculoskeletal: Reports: no symptoms Skin: Reports: no symptoms Neurological: Reports: No Symptoms Psychiatric: Reports: no symptoms - General Info Date of Service: 06/28/16 - Patient Data Vital Signs - most recent: Last Vital Signs Temp 36.9 C 06/27/16 20:01 Pulse 73 06/27/16 20:01 Resp 16 06/27/16 20:01 BP 112/60 06/27/16 20:01 Pulse Ox 98 06/27/16 20:01 Weight - most recent: 99.79 kg I&O - last 24 hours: Intake & Output 06/27/16 06/28/16 06/28/16 22:59 06:59 14:59 Intake Total 1000 1000 Balance 1000 1000 Med Orders - Current: Current Medications Acetaminophen (Tylenol) 650 mg PO Q4H PRN PRN Reason: Pain (Mild 1-3) and fever Last Admin: 06/26/16 18:44 Dose: 650 mg Hydrocodone Bitart/Acetaminophen ([place] 325-5 Mg) 1 - 2 tab PO Q4H PRN PRN Reason: Pain (moderate 4-6) Benzocaine (Exzx-R-Lwtudjy 20% [place]) 0 gm TOP Q4H PRN PRN Reason: Perineal Comfort Measure Calcium Carbonate/Glycine (Tums) 1,000 mg PO Q2H PRN PRN Reason: Indigestion Docusate Sodium (Colace) 100 mg PO BID PRN PRN Reason: Constipation Last Admin: 06/27/16 16:50 Dose: 100 mg Emollient Ointment (Lansinoh Hpa) 0 gm TOP ASDIRECTED PRN PRN Reason: Sore Nipples Fentanyl (Sublimaze) 100 mcg IVPUSH Q1H PRN PRN Reason: Pain (moderate 4-6) Last Admin: 06/26/16 15:08 Dose: 100 mcg Ferrous Sulfate (Ferrous Sulfate) 325 mg PO WITHBREAKFAST [facility] Last Admin: 06/28/16 07:53 Dose: 325 mg Ibuprofen (Motrin) 600 mg PO Q6H PRN PRN Reason: mild pain or fever Last Admin: 06/27/16 22:12 Dose: 600 mg Ondansetron HCl (Zofran) 4 mg IV Q4H PRN PRN Reason: Nausea/Vomiting Last Admin: 06/26/16 14:53 Dose: 4 mg Prenat Multivit/Plate Drying Machine Tender/Iron/Folic Ac ( Plus Iron) 1 each PO DAILY [facility] Last Admin: 06/28/16 07:53 Dose: 1 each Sodium Chloride (Saline Flush) 10 ml FLUSH ASDIRECTED PRN PRN Reason: Keep Vein Open Witch Danielle (Tucks) 1 pad TOP ASDIRECTED PRN PRN Reason: Hemorrhoids Discontinued Medications Penicillin G Potassium 5 (millunits/ Sodium Chloride) 100 mls @ 100 mls/hr IV ONETIME ONE Stop: 06/26/16 09:29 Last Admin: 06/26/16 08:35 Dose: 100 mls/hr Penicillin G Potassium 2.5 (millunits/ Sodium Chloride) 50 mls @ 100 mls/hr IV Q4H BRYAN Last Admin: 06/26/16 16:53 Dose: Not Given Oxytocin/Sodium Chloride (Pitocin In Ns 20 Units/1,000 Ml) Confirm Administered Dose 20 unit in 1,000 mls @ as directed .ROUTE .STK-MED ONE Stop: 06/26/16 13:11 Last Admin: 06/26/16 16:12 Dose: 999 unit Oxytocin/Sodium Chloride (Pitocin In Ns 20 Units/1,000 Ml) 20 unit in 1,000 mls @ 2,997 mls/hr IV ONETIME ONE; 999 MUNITS/MIN PRN Reason: Protocol Stop: 06/26/16 17:37 Last Admin: 06/26/16 18:45 Dose: Not Given Lidocaine HCl (Xylocaine 1%) Confirm Administered Dose 100 ml .ROUTE .STK-MED ONE Stop: 06/26/16 16:15 Last Admin: 06/26/16 16:51 Dose: Not Given Methylergonovine Maleate (Methergine) Confirm Administered Dose 0.2 mg .ROUTE .STK-MED ONE Stop: 06/26/16 16:15 Last Admin: 06/26/16 16:52 Dose: Not Given Misoprostol (Cytotec) 50 mcg VAG ONETIME ONE Stop: 06/26/16 08:16 Last Admin: 06/26/16 08:00 Dose: 50 mcg Misoprostol (Cytotec) Confirm Administered Dose 50 mcg .ROUTE .STK-MED ONE Stop: 06/26/16 08:00 Last Admin: 06/26/16 08:36 Dose: Not Given Misoprostol (Cytotec) Confirm Administered Dose 800 mcg .ROUTE .STK-MED ONE Stop: 06/26/16 16:14 Last Admin: 06/26/16 16:52 Dose: Not Given - Interaction Infant Disposition, : [place] at Bedside Infant Interaction: Holding Feeding: Breastfed Infant; Nursed Well Support Person: - Recovery Exam Fundal Tone: Firm Fundal Level: 1 Fingerbreadths Below Umbilicus Fundal Placement: Midline Lochia Amount: Small Lochia Color: Rubra/Red Perineum Description: Intact, Minimal Bruising/Swelling Episiotomy/Laceration: None Bladder Status: Voiding Urinary Elimination: Voided - Exam General: alert, oriented HEENT: Pupils equal Neck: supple Lungs: Clear to auscultation, Normal respiratory effort Cardiovascular: Regular Rate, Regular Rhythm Abdomen: bowel sounds present, soft, no tenderness, no distension Extremities: no edema Skin: warm, dry, intact Neurological: no new focal deficit Psy/Mental Status: alert, normal affect, normal mood - Problem List & Annotations (1) Positive GBS test SNOMED Code(s): 6602001889594, 6086612469943 Code(s): B95.1 - STREPTOCOCCUS, GROUP B, [facility] Status: Acute Current Visit: Yes (2) Elective induction of labor planned SNOMED Code(s): 567369440 Code(s): VBA8194 - Status: Acute Current Visit: Yes (3) SNOMED Code(s): 03988817 Code(s): Z33.1 - STATE, INCIDENTAL Status: Acute Current Visit: Yes Qualifiers: Weeks of gestation: 40 weeks Qualified Code(s): Z3A.40 - 40 weeks gestation of (4) Anemia of SNOMED Code(s): 00933440 Code(s): O99.019 - ANEMIA COMPLICATING , UNSPECIFIED TRIMESTER Status: Chronic Priority: Medium Current Visit: No (5) Shoulder dystocia during labor and delivery SNOMED Code(s): 74114379 Code(s): O66.0 - OBSTRUCTED LABOR DUE TO SHOULDER DYSTOCIA Status: Acute Current Visit: Yes (6) Vaginal delivery SNOMED Code(s): 141890258 Code(s): O80 - ENCOUNTER FOR FULL-TERM UNCOMPLICATED DELIVERY Status: Acute Current Visit: Yes (7) (infant) SNOMED Code(s): 228615840 Code(s): Z78.9 - OTHER SPECIFIED HEALTH STATUS Status: Acute Current Visit: Yes - Problem List Review Problem List Initiated/Reviewed/Updated: Yes - My Orders Last 24 Hours: My Active Orders 06/27/16 09:00 Vit with Ca/FA/Iron [ Plus Iron] 1 each PO DAILY 06/27/16 15:43 Docusate Sodium [Colace] 100 mg PO BID PRN - Assessment Assessment:: 06/26/2016 31 yo G3 now P3 @ 40 3/7 gestational weeks normal spontaneous vaginal delivery with a shoulder dystocia-relieved by Mylene, Suprapubic maneuvers. Labs- A positive Rubella Immune Hep B negative HIV negative RPR nonreactive Hgb 11.5 GBS positive-treated 06/27/2016 Normal from [facility] Hgb-10.8 GBS positive-treated Fundus firm, bleeding decreased, no perineal swelling Pain managed with oral pain medication Voiding and passing gas 06/28/2016 Normal from [facility] Voiding and had BM yesterday and today Fundus firm, bleeding decreased Pain managed with oral pain medication GBS positive treated - Plan Plan:: 06/26/2016 31 yo at 40 3/7 weeks gestation with an GLORIA 06/23/2016 here for an elective induction SVE 2/70/-2 [place]-7 Cytotec-50mcg placed for induction FHTS category one Only occasional contraction noted before placement of cytotec Labs-A positive, Rubella Immune, RPR nonreactive, Hep B negative, HIV negative, GBS positive Plan- Monitor for active labor PCN G IV for GBS positive Pain management per patient request Up ad chacorta Intermittent FHT Regular diet Plan for a vaginal delivery 06/26/2016 Routine Cares Encourage and Support Plan for a 48 hour stay due to GBS positive 06/27/2016 Continue Routine Cares Continue to support and encourage Hgb 10.8-continue taking iron and vitamin Plan discharge tomorrow due to GBS positive at delivery 06/28/2016 Continue Routine Cares Continue to support and encourage Continue iron and vitamin Discharge today-6 week with Yesy
[2016-06-28 10:03] VITALS: BP 107/58
== END 2016-06-28 14:45 | disposition home or self-care (01) | DRG 560 ==
LOC: JP.OB 06:53 → OBSVTOIN 16:11 → JP.MS 16:11
PROVIDERS: ADMIT Advanced Practice Midwife; ATTEND Advanced Practice Midwife
PROC: 10E0XZZ Delivery of Products of Conception, External Approach (ICD-10-PCS; principal; 2016-06-26)
PROC: 3E033VJ Introduction of Other Hormone into Peripheral Vein, Percutaneous Approach (ICD-10-PCS; principal; 2016-06-26)
DX: O66.0 Obstructed labor due to shoulder dystocia (principal); O99.824 Streptococcus B carrier state complicating childbirth; Z3A.40 40 weeks gestation of pregnancy; Z37.0 Single live birth; O36.60X0 Maternal care for excessive fetal growth, unspecified trimester, not applicable or unspecified; O99.019 Anemia complicating pregnancy, unspecified trimester; B95.1 Streptococcus, group B, as the cause of diseases classified elsewhere; Z88.5 Allergy status to narcotic agent
CPT/HCPCS: 36415; 80305; 81001; 85025; 85027; A9270-GY; J2405; J2540; J2590; J3010; J7030; J7050

== ENCOUNTER 2018-07-18 07:11 | Inpatient (IN) | payer BC ==
[2018-07-18] MEDS ORDERED: Misoprostol 50 MCG (1/2 of 100 MCG) Tab VAG ONE (07:57)
[2018-07-18] MEDS ORDERED: Acetaminophen 325 MG Tab PO PRN (08:07)
[2018-07-18] MEDS ORDERED: ePHEDrine 50 MG/ML SDV IVPUSH PRN (08:07)
[2018-07-18] MEDS ORDERED: Ondansetron 4 MG/2 ML SDV IV PRN (08:07)
[2018-07-18] MEDS ORDERED: fentaNYL 100 MCG/2 ML SDV IVPUSH PRN (08:07)
[2018-07-18] MEDS ORDERED: Sodium Chloride 0.9% 10 ML Syringe FLUSH PRN (08:07)
[2018-07-18] MEDS ORDERED: Calcium Carbonate 500 MG Tab.Chew PO PRN (08:07)
[2018-07-18] MEDS ORDERED: Lactated Ringers 1,000 ML IV ONE (08:07)
[2018-07-18] MEDS ORDERED: Penicillin G Potassium 5 MILLUNITS in Sodium Chloride 0.9% 100 ML IV ONE (08:30)
--- NOTE | 2018-07-18 08:35 | PCM.LDHP ---
<Macey Medina - Last Filed: 07/18/18 08:28> L&D History of Present Illness - General Date of Service: 07/18/18 (Elective induction of labor) Admit Problem/Dx: Patient Status Order with Admit Dx/Problem 07/18/18 08:08 Patient Status [ADT] Routine Admission Diagnosis/Problem Admission Diagnosis/Problem Term Source of Information: Patient History Limitations: Reports: No Limitations - History of Present Illness Introduction:: 07/18/18 33 yo is here at 39 3/7 weeks for elective term induction of labor. She is 360/-1, Winslow of 9. She has a history of a shoulder dystocia at 41 3/7 with her last baby weighing 9 # 15 oz. She has had an uncomplicated except for anemia in the third trimester which she has been taking iron for. She plans for an epidural this time. in the room, they are very excited. Timing/Duration: Reports: intermittent - Related Data Allergies/Adverse Reactions: Allergies Allergy/AdvReac Type Severity Reaction Status Date / Time codeine AdvReac Intermediate Vomiting Verified 04/20/14 22:33 Home Medications: Home Meds Docosahexanoic Acid [DHA] 100 mg PO DAILY 04/20/14 [History] Ferrous Gluconate 1 tab PO BID 04/20/14 [History] PNV95/Ferrous Fumarate/FA [ Multivitamins] 1 each PO DAILY 04/20/14 [ History] Ibuprofen [Motrin] 600 mg PO Q6H PRN 07/18/18 [History] Past Medical History HEENT History: Reports: Impaired Vision, Other (See Below) Other HEENT History: glasses Cardiovascular History: Reports: Other (See Below) Other Cardiovascular History: chest pain r/o cardiac Gastrointestinal History: Reports: Other (See Below) Other Gastrointestinal History: questionable esophageal spasm when left side lying 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 Para: 3 LMP (Approximate): Other OB/BYN History: GLORIA-06/23/2016 Dermatologic History: Reports: Psoriasis, Other (See Below) Other Dermatologic History: scalp and back of neck - Infectious Disease History Infectious Disease History: Reports: Chicken Pox - Past Surgical History HEENT Surgical History: Reports: None Cardiovascular Surgical History: Reports: None GI Surgical History: Reports: Appendectomy Dermatological Surgical History: Reports: None Social & Family History - Family History Family Medical History: Noncontributory - Tobacco Use Smoking Status *Q: Former Smoker Used Tobacco, but Quit: Yes Month/Year Tobacco Last Used: 07/1999 Second Hand Smoke Exposure: No - Caffeine Use Caffeine Use: Reports: Coffee - Recreational Drug Use Recreational Drug Use: No H&P Review of Systems - Review of Systems: Review Of Systems: See Below General: Reports: No Symptoms HEENT: Reports: No Symptoms Pulmonary: Reports: No Symptoms Cardiovascular: Reports: No Symptoms Gastrointestinal: Reports: No Symptoms Genitourinary: Reports: No Symptoms Musculoskeletal: Reports: No Symptoms Skin: Reports: No Symptoms Psychiatric: Reports: No Symptoms Neurological: Reports: No Symptoms Hematologic/Lymphatic: Reports: No Symptoms Immunologic: Reports: No Symptoms L&D Exam - Exam Exam: See Below - OB Specific Contraction Intensity: Mild Movement: Active Heart Tones: Present Heart Tones per Min: 140 Heart Rate (FHR) Variability: Moderate (6-25 bmp) Presentation: Vertex Estimated Weight: 8.5# - Winslow Score Winslow Score Cervix Position: Midposition Winslow Score Consistency: Soft Wins[place] Score Effacement: 51-70% Winslow Score Dilation: 3-4 cm Winslow Score 's Station: -1 ,0 Winslow Score Total: 9 - Exam General: Alert, Oriented HEENT: PERRLA, Hearing Intact, Mucosa Moist & [place], Nares Patent, Pupils Equal, Pupils Reactive Lungs: Clear to Auscultation, Normal Respiratory Effort Cardiovascular: Regular Rate, Regular Rhythm GI/Abdominal Exam: Normal Bowel Sounds, Soft, Non-Tender, No Organomegaly, No Distention, No Abnormal Bruit, No Mass, Pelvis Stable Rectal Exam: Normal Exam, Normal Rectal Tone Genitourinary: Normal external exam, Cervical dilitation, Enlarged uterus. No: Vaginal bleeding Back Exam: Normal Inspection, Full Range of Motion Extremities: Normal Inspection, Normal Range of Motion, Non-Tender, No Pedal Edema, Normal Capillary Refill Skin: Warm, Dry, Intact Neurological: Cranial Nerves Intact, Reflexes Equal Bilateral Psychiatric: Alert, Normal Affect, Normal Mood - Patient Data Lab Results Last 24 hrs: Laboratory Results - last 24 hr 07/18/18 07/18/18 07/18/18 Range/Units 07:50 07:50 07:59 WBC 7.2 (4.5-11.0) K/uL RBC 4.03 (3.30-5.50) M/uL Hgb 10.8 L (12.0-15.0) g/dL Hct 33.8 L (36.0-48.0) % MCV 84 (80-98) fL MCH 27 (27-31) pg MCHC 32 (32-36) % Plt Count 185 (150-400) K/uL Neut % (Auto) 71 H (36-66) % Lymph % (Auto) 20 L (24-44) % [place] % (Auto) 8 H (2-6) % Eos % (Auto) 1 L (2-4) % Baso % (Auto) 0 (0-1) % Urine Color Yellow Urine Appearance Clear Urine pH 6.0 (4.5-8.0) Ur Specific [place] 1.015 (1.008-1.030) Urine Protein Negative (NEGATIVE) mg/dL Urine Glucose (UA) Normal (NEGATIVE) mg/dL Urine Ketones Negative (NEGATIVE) mg/dL Urine Occult Blood Negative (NEGATIVE) Urine Nitrite Negative (NEGATIVE) Urine Bilirubin Negative (NEGATIVE) Urine Urobilinogen Normal (NORMAL) mg/dL Ur Leukocyte Esterase Small (NEGATIVE) Urine RBC Not seen (0-5) Urine WBC 0-5 (0-5) Ur Epithelial Cells Moderate Amorphous Sediment Not seen Urine Bacteria Few Urine Mucus Few Urine Opiates Screen Negative (NEGATIVE) Ur Oxycodone Screen Negative (NEGATIVE) Urine Methadone Screen Negative (NEGATIVE) Ur Propoxyphene Screen Negative (NEGATIVE) Ur Barbiturates Screen Negative (NEGATIVE) Ur Tricyclics Screen Negative (NEGATIVE) Ur Phencyclidine Scrn Negative (NEGATIVE) Ur Amphetamine Screen Negative (NEGATIVE) U Methamphetamines Scrn Negative (NEGATIVE) Urine MDMA Screen Negative (NEGATIVE) U Benzodiazepines Scrn Negative (NEGATIVE) U Cocaine Metab Screen Negative (NEGATIVE) U Marijuana (THC) Screen Negative (NEGATIVE) Result Diagrams: 07/18/18 07:59 - Problem List (1) Term SNOMED Code(s): 83778055 ICD Code: Z34.80 - ENCOUNTER FOR SUPRVSN OF NORMAL , UNSP TRIMESTER Status: Acute Current Visit: Yes (2) Elective induction of labor planned SNOMED Code(s): 795477032 ICD Code: FCL0652 - Status: Acute Current Visit: No (3) Positive GBS test SNOMED Code(s): 4493774041749, 7747236716362 ICD Code: B95.1 - STREPTOCOCCUS, GROUP B, CAUSING DISEASES CLASSD ELSWHR Status: Acute Current Visit: No (4) Anemia of SNOMED Code(s): 76094965 ICD Code: O99.019 - ANEMIA COMPLICATING , UNSPECIFIED TRIMESTER Status: Chronic Priority: Medium Current Visit: No Problem List Initiated/Reviewed/Updated: Yes Orders Last 24hrs: Active Orders 24 hr Category Date Time Status Patient Status [ADT] Routine ADT 07/18/18 08:08 Active Antiembolic Devices [RC] .Routine Care 07/18/18 08:09 Active Communication Order [RC] ASDIRECTED Care 07/18/18 08:08 Active Communication Order [RC] Per Unit Routine Care 07/18/18 08:08 Active Dietary Supplements [RC] BIDMEALS Care 07/18/18 08:12 Active Dietary Supplements [RC] BIDMEALS Care 07/18/18 08:13 Active Heart Tones [RC] PER UNIT ROUTINE Care 07/18/18 08:08 Active Non Stress Test [RC] Click to Edit Care 07/18/18 08:08 Active Insert Urinary Catheter [OM.PC] ASDIRECTED Care 07/18/18 08:15 Ordered Local Anesthetic Infusion Pump [RC] ASDIRECTED Care 07/18/18 08:08 Active Notify Provider Vital Signs [RC] PRN Care 07/18/18 08:11 Active Notify Provider [RC] PRN Care 07/18/18 08:08 Active PCEA Epidural [RC] ASDIRECTED Care 07/18/18 08:08 Active PCEA Epidural [RC] ASDIRECTED Care 07/18/18 08:08 Active Up ad Angelic [RC] ASDIRECTED Care 07/18/18 08:07 Active Urinary Catheter Assessment [RC] ASDIRECTED Care 07/18/18 08:08 Active VTE/DVT Education [RC] Click to Edit Care 07/18/18 08:09 Active Verify Patient Consent Obtain [RC] ASDIRECTED Care 07/18/18 08:08 Active Vital Signs [RC] PER UNIT ROUTINE Care 07/18/18 08:08 Active Clear Liquid Diet [DIET] Diet 07/18/18 Breakfast Active Acetaminophen [Tylenol] Med 07/18/18 08:07 Active 650 mg PO Q4H PRN Calcium Carbonate [Tums] Med 07/18/18 08:07 Active 1,000 mg PO Q2H PRN Lactated Ringers [Ringers, Lactated] 1,000 ml Med 07/18/18 08:07 Active IV ONETIME Ondansetron [Zofran] Med 07/18/18 08:07 Active 4 mg IV Q4H PRN Oxytocin [Pitocin] Med 07/18/18 13:00 Active 10 unit IM ASDIRECTED Penicillin G Potassium [Pfizerpen] 2.5 millunits Med 07/18/18 12:30 Active Sodium Chloride 0.9% [Normal Saline] 50 ml IV Q4H Penicillin G Potassium [Pfizerpen] 5 millunits Med 07/18/18 08:30 Active Sodium Chloride 0.9% [Normal Saline] 100 ml IV ONETIME Sodium Chloride 0.9% [Saline Flush] Med 07/18/18 08:07 Active 10 ml FLUSH ASDIRECTED PRN ePHEDrine [ePHEDrine sulfate] Med 07/18/18 08:07 Active 10 mg IVPUSH ASDIRECTED PRN fentaNYL [Sublimaze] Med 07/18/18 08:07 Active 100 mcg IVPUSH Q1H PRN DVT/VTE Prophylaxis Reflex [OM.PC] Routine Oth 07/18/18 08:07 Ordered Epidural Catheter Management [OM.PC] Urgent Oth 07/18/18 08:08 Ordered Saline Lock Insert [OM.PC] Routine Oth 07/18/18 08:08 Ordered Resuscitation Status Routine Resus Stat 07/18/18 08:07 Ordered Medication Orders Acetaminophen (Tylenol) 650 mg PO Q4H PRN PRN Reason: Pain (Mild 1-3) and fever Calcium Carbonate/Glycine (Tums) 1,000 mg PO Q2H PRN PRN Reason: Indigestion Ephedrine Sulfate (Ephedrine Sulfate) 10 mg IVPUSH ASDIRECTED PRN PRN Reason: Hypotension Fentanyl (Sublimaze) 100 mcg IVPUSH Q1H PRN PRN Reason: Pain (moderate 4-6) Lactated Ringer's (Ringers, Lactated) 1,000 mls @ 999 mls/hr IV ONETIME ONE Stop: 07/18/18 09:07 Penicillin G Potassium 5 (millunits/ Sodium Chloride) 100 mls @ 200 mls/hr IV ONETIME ONE Stop: 07/18/18 08:59 Penicillin G Potassium 2.5 (millunits/ Sodium Chloride) 50 mls @ 100 mls/hr IV Q4H BRYAN Ondansetron HCl (Zofran) 4 mg IV Q4H PRN PRN Reason: Nausea/Vomiting Oxytocin (Pitocin) 10 unit IM ASDIRECTED BRYAN Sodium Chloride (Saline Flush) 10 ml FLUSH ASDIRECTED PRN PRN Reason: Keep Vein Open Assessment/Plan Comment:: 07/18/18 Assessment: 33 yo Term induction of labor at 39 3/7, elective for history of shoulder dystocia GBS positive /-1, Winslow 9 Plan: GBS antibiotics started Cytotec 50 mcg vaginally Epidural when patient desires Anticipate <Yesy Ayala A - Last Filed: 07/18/18 08:39> L&D History of Present Illness - General Admit Problem/Dx: Patient Status Order with Admit Dx/Problem 07/18/18 08:08 Patient Status [ADT] Routine Admission Diagnosis/Problem Admission Diagnosis/Problem Term L&D Exam - Vital Signs Vital Signs: Last Vital Signs Temp 97.5 F 07/18/18 07:30 Pulse 117 H 07/18/18 07:30 Resp 16 07/18/18 07:30 BP 105/73 07/18/18 07:30 Pulse Ox 97 07/18/18 07:30 - Patient Data Lab Results Last 24 hrs: Laboratory Results - last 24 hr 07/18/18 07/18/18 07/18/18 Range/Units 07:50 07:50 07:59 WBC 7.2 (4.5-11.0) K/uL RBC 4.03 (3.30-5.50) M/uL Hgb 10.8 L (12.0-15.0) g/dL Hct 33.8 L (36.0-48.0) % MCV 84 (80-98) fL MCH 27 (27-31) pg MCHC 32 (32-36) % Plt Count 185 (150-400) K/uL Neut % (Auto) 71 H (36-66) % Lymph % (Auto) 20 L (24-44) % [place] % (Auto) 8 H (2-6) % Eos % (Auto) 1 L (2-4) % Baso % (Auto) 0 (0-1) % Urine Color Yellow Urine Appearance Clear Urine pH 6.0 (4.5-8.0) Ur Specific [place] 1.015 (1.008-1.030) Urine Protein Negative (NEGATIVE) mg/dL Urine Glucose (UA) Normal (NEGATIVE) mg/dL Urine Ketones Negative (NEGATIVE) mg/dL Urine Occult Blood Negative (NEGATIVE) Urine Nitrite Negative (NEGATIVE) Urine Bilirubin Negative (NEGATIVE) Urine Urobilinogen Normal (NORMAL) mg/dL Ur Leukocyte Esterase Small (NEGATIVE) Urine RBC Not seen (0-5) Urine WBC 0-5 (0-5) Ur Epithelial Cells Moderate Amorphous Sediment Not seen Urine Bacteria Few Urine Mucus Few Urine Opiates Screen Negative (NEGATIVE) Ur Oxycodone Screen Negative (NEGATIVE) Urine Methadone Screen Negative (NEGATIVE) Ur Propoxyphene Screen Negative (NEGATIVE) Ur Barbiturates Screen Negative (NEGATIVE) Ur Tricyclics Screen Negative (NEGATIVE) Ur Phencyclidine Scrn Negative (NEGATIVE) Ur Amphetamine Screen Negative (NEGATIVE) U Methamphetamines Scrn Negative (NEGATIVE) Urine MDMA Screen Negative (NEGATIVE) U Benzodiazepines Scrn Negative (NEGATIVE) U Cocaine Metab Screen Negative (NEGATIVE) U Marijuana (THC) Screen Negative (NEGATIVE) Result Diagrams: 07/18/18 07:59 Orders Last 24hrs: Active Orders 24 hr Category Date Time Status Patient Status [ADT] Routine ADT 07/18/18 08:08 Active Antiembolic Devices [RC] .Routine Care 07/18/18 08:09 Active Communication Order [RC] ASDIRECTED Care 07/18/18 08:08 Active Communication Order [RC] Per Unit Routine Care 07/18/18 08:08 Active Dietary Supplements [RC] BIDMEALS Care 07/18/18 08:12 Active Dietary Supplements [RC] BIDMEALS Care 07/18/18 08:13 Active Heart Tones [RC] PER UNIT ROUTINE Care 07/18/18 08:08 Active Non Stress Test [RC] Click to Edit Care 07/18/18 08:08 Active Insert Urinary Catheter [OM.PC] ASDIRECTED Care 07/18/18 08:15 Ordered Local Anesthetic Infusion Pump [RC] ASDIRECTED Care 07/18/18 08:08 Active Notify Provider Vital Signs [RC] PRN Care 07/18/18 08:11 Active Notify Provider [RC] PRN Care 07/18/18 08:08 Active PCEA Epidural [RC] ASDIRECTED Care 07/18/18 08:08 Active PCEA Epidural [RC] ASDIRECTED Care 07/18/18 08:08 Active Up ad Angelic [RC] ASDIRECTED Care 07/18/18 08:07 Active Urinary Catheter Assessment [RC] ASDIRECTED Care 07/18/18 08:08 Active VTE/DVT Education [RC] Click to Edit Care 07/18/18 08:09 Active Verify Patient Consent Obtain [RC] ASDIRECTED Care 07/18/18 08:08 Active Vital Signs [RC] PER UNIT ROUTINE Care 07/18/18 08:08 Active Clear Liquid Diet [DIET] Diet 07/18/18 Breakfast Active Acetaminophen [Tylenol] Med 07/18/18 08:07 Active 650 mg PO Q4H PRN Calcium Carbonate [Tums] Med 07/18/18 08:07 Active 1,000 mg PO Q2H PRN Lactated Ringers [Ringers, Lactated] 1,000 ml Med 07/18/18 08:07 Active IV ONETIME Ondansetron [Zofran] Med 07/18/18 08:07 Active 4 mg IV Q4H PRN Oxytocin [Pitocin] Med 07/18/18 13:00 Active 10 unit IM ASDIRECTED Penicillin G Potassium [Pfizerpen] 2.5 millunits Med 07/18/18 12:30 Active Sodium Chloride 0.9% [Normal Saline] 50 ml IV Q4H Penicillin G Potassium [Pfizerpen] 5 millunits Med 07/18/18 08:30 Active Sodium Chloride 0.9% [Normal Saline] 100 ml IV ONETIME Sodium Chloride 0.9% [Saline Flush] Med 07/18/18 08:07 Active 10 ml FLUSH ASDIRECTED PRN ePHEDrine [ePHEDrine sulfate] Med 07/18/18 08:07 Active 10 mg IVPUSH ASDIRECTED PRN fentaNYL [Sublimaze] Med 07/18/18 08:07 Active 100 mcg IVPUSH Q1H PRN DVT/VTE Prophylaxis Reflex [OM.PC] Routine Oth 07/18/18 08:07 Ordered Epidural Catheter Management [OM.PC] Urgent Oth 07/18/18 08:08 Ordered Saline Lock Insert [OM.PC] Routine Oth 07/18/18 08:08 Ordered Resuscitation Status Routine Resus Stat 07/18/18 08:07 Ordered Medication Orders Acetaminophen (Tylenol) 650 mg PO Q4H PRN PRN Reason: Pain (Mild 1-3) and fever Calcium Carbonate/Glycine (Tums) 1,000 mg PO Q2H PRN PRN Reason: Indigestion Ephedrine Sulfate (Ephedrine Sulfate) 10 mg IVPUSH ASDIRECTED PRN PRN Reason: Hypotension Fentanyl (Sublimaze) 100 mcg IVPUSH Q1H PRN PRN Reason: Pain (moderate 4-6) Lactated Ringer's (Ringers, Lactated) 1,000 mls @ 999 mls/hr IV ONETIME ONE Stop: 07/18/18 09:07 Penicillin G Potassium 5 (millunits/ Sodium Chloride) 100 mls @ 200 mls/hr IV ONETIME ONE Stop: 07/18/18 08:59 Last Admin: 07/18/18 08:28 Dose: 200 mls/hr Penicillin G Potassium 2.5 (millunits/ Sodium Chloride) 50 mls @ 100 mls/hr IV Q4H BRYAN Ondansetron HCl (Zofran) 4 mg IV Q4H PRN PRN Reason: Nausea/Vomiting Oxytocin (Pitocin) 10 unit IM ASDIRECTED BRYAN Sodium Chloride (Saline Flush) 10 ml FLUSH ASDIRECTED PRN PRN Reason: Keep Vein Open Assessment/Plan Comment:: I personally performed or re-performed the physical examination and medical decision making. I have verified all student documentation or findings, including history, physical exam and/or medical decision making. Yesy Ayala APRN, CNM, CFNP
[2018-07-18] MEDS ORDERED: Ropivacaine 100 ML ONE (11:07)
--- NOTE | 2018-07-18 11:58 | PCM.PNLD ---
<Macey Medina - Last Filed: 07/18/18 11:54> Labor Progress Note - VS & Meds Vital Signs: Last Vital Signs Temp 36.7 C 07/18/18 09:05 Pulse 104 H 07/18/18 11:35 Resp 16 07/18/18 11:35 BP 104/74 07/18/18 11:35 Pulse Ox 97 07/18/18 11:35 Active Medications: Current Medications Acetaminophen (Tylenol) 650 mg PO Q4H PRN PRN Reason: Pain (Mild 1-3) and fever Calcium Carbonate/Glycine (Tums) 1,000 mg PO Q2H PRN PRN Reason: Indigestion Ephedrine Sulfate (Ephedrine Sulfate) 10 mg IVPUSH ASDIRECTED PRN PRN Reason: Hypotension Fentanyl (Sublimaze) 100 mcg IVPUSH Q1H PRN PRN Reason: Pain (moderate 4-6) Penicillin G Potassium 2.5 (millunits/ Sodium Chloride) 50 mls @ 100 mls/hr IV Q4H BRYAN Ondansetron HCl (Zofran) 4 mg IV Q4H PRN PRN Reason: Nausea/Vomiting Oxytocin (Pitocin) 10 unit IM ASDIRECTED BRYAN Sodium Chloride (Saline Flush) 10 ml FLUSH ASDIRECTED PRN PRN Reason: Keep Vein Open Discontinued Medications Lactated Ringer's (Ringers, Lactated) 1,000 mls @ 999 mls/hr IV ONETIME ONE Stop: 07/18/18 09:07 Last Admin: 07/18/18 10:15 Dose: 999 mls/hr Penicillin G Potassium 5 (millunits/ Sodium Chloride) 100 mls @ 200 mls/hr IV ONETIME ONE Stop: 07/18/18 08:59 Last Admin: 07/18/18 08:28 Dose: 200 mls/hr Ropivacaine (Naropin 0.2%) Confirm Administered Dose 100 mls @ as directed .ROUTE .STK-MED ONE Stop: 07/18/18 11:08 Misoprostol (Cytotec) 50 mcg VAG ONETIME ONE Stop: 07/18/18 07:58 Last Admin: 07/18/18 08:02 Dose: 50 mcg - Uterine Contractions Uterine Monitoring Mode: External [place] Contraction Frequency (min): 2-3 Contraction Duration (sec): 60 Contraction Intensity: Moderate Uterine Resting Tone: Soft - Monitoring Monitor Mode: External Ultrasound Heart Rate (FHR) Baseline: 150 Heart Rate (FHR) Variability: Moderate (6-25 bmp) Accelerations: Present, 15x15 Decelerations: None Strip Review: Category I - Vaginal Exam Dilation (cm): 4 Effacement (Percent): 70 Station: -1 Cervical Position: Midposition Sterile Vaginal Exam Performed By: Macey Medina - Labor Progress (Free Text) Labor Progress: 07/18/18 AROM of a large amount of clear fluid at 1153. 4/70/-1. Epid[address] place, she is comfortable. Category 1 tracing so far with induction. <Yesy Ayala - Last Filed: 07/18/18 12:17> Labor Progress Note - VS & Meds Vital Signs: Last Vital Signs Temp 98.7 F 07/18/18 11:52 Pulse 75 07/18/18 11:52 Resp 16 07/18/18 11:52 BP 100/58 L 07/18/18 11:52 Pulse Ox 96 07/18/18 11:52 Active Medications: Current Medications Acetaminophen (Tylenol) 650 mg PO Q4H PRN PRN Reason: Pain (Mild 1-3) and fever Calcium Carbonate/Glycine (Tums) 1,000 mg PO Q2H PRN PRN Reason: Indigestion Ephedrine Sulfate (Ephedrine Sulfate) 10 mg IVPUSH ASDIRECTED PRN PRN Reason: Hypotension Last Admin: 07/18/18 12:01 Dose: 10 mg Fentanyl (Sublimaze) 100 mcg IVPUSH Q1H PRN PRN Reason: Pain (moderate 4-6) Penicillin G Potassium 2.5 (millunits/ Sodium Chloride) 50 mls @ 100 mls/hr IV Q4H BRYAN Last Admin: 07/18/18 12:07 Dose: 100 mls/hr Ondansetron HCl (Zofran) 4 mg IV Q4H PRN PRN Reason: Nausea/Vomiting Oxytocin (Pitocin) 10 unit IM ASDIRECTED BRYAN Sodium Chloride (Saline Flush) 10 ml FLUSH ASDIRECTED PRN PRN Reason: Keep Vein Open Discontinued Medications Lactated Ringer's (Ringers, Lactated) 1,000 mls @ 999 mls/hr IV ONETIME ONE Stop: 07/18/18 09:07 Last Admin: 07/18/18 10:15 Dose: 999 mls/hr Penicillin G Potassium 5 (millunits/ Sodium Chloride) 100 mls @ 200 mls/hr IV ONETIME ONE Stop: 07/18/18 08:59 Last Admin: 07/18/18 08:28 Dose: 200 mls/hr Ropivacaine (Naropin 0.2%) Confirm Administered Dose 100 mls @ as directed .ROUTE .STK-MED ONE Stop: 07/18/18 11:08 Misoprostol (Cytotec) 50 mcg VAG ONETIME ONE Stop: 07/18/18 07:58 Last Admin: 07/18/18 08:02 Dose: 50 mcg - Labor Progress (Free Text) Labor Progress: I personally performed or re-performed the physical examination and medical decision making. I have verified all student documentation or findings, including history, physical exam and/or medical decision making.Yesy Ayala APRN, AMANDEEP, CFNP
[2018-07-18] MEDS: Penicillin G Potassium 2.5 MILLUNITS in Sodium Chloride 0.9% 50 ML IV SCH ×2 (12:07→16:47)
[2018-07-18] MEDS ORDERED: Oxytocin 10 Units/1 ML SDV IM SCH (13:00)
--- NOTE | 2018-07-18 14:03 | PCM.PNLD ---
<Macey Medina - Last Filed: 07/18/18 14:02> Labor Progress Note - VS & Meds Vital Signs: Last Vital Signs Temp 37.1 C 07/18/18 11:52 Pulse 102 H 07/18/18 13:05 Resp 16 07/18/18 13:05 BP 87/50 L 07/18/18 13:05 Pulse Ox 99 07/18/18 13:05 Active Medications: Current Medications Acetaminophen (Tylenol) 650 mg PO Q4H PRN PRN Reason: Pain (Mild 1-3) and fever Calcium Carbonate/Glycine (Tums) 1,000 mg PO Q2H PRN PRN Reason: Indigestion Ephedrine Sulfate (Ephedrine Sulfate) 10 mg IVPUSH ASDIRECTED PRN PRN Reason: Hypotension Last Admin: 07/18/18 12:01 Dose: 10 mg Fentanyl (Sublimaze) 100 mcg IVPUSH Q1H PRN PRN Reason: Pain (moderate 4-6) Penicillin G Potassium 2.5 (millunits/ Sodium Chloride) 50 mls @ 100 mls/hr IV Q4H [facility] Last Admin: 07/18/18 12:07 Dose: 100 mls/hr Ondansetron HCl (Zofran) 4 mg IV Q4H PRN PRN Reason: Nausea/Vomiting Oxytocin (Pitocin) 10 unit IM ASDIRECTED [facility] Sodium Chloride (Saline Flush) 10 ml FLUSH ASDIRECTED PRN PRN Reason: Keep Vein Open Discontinued Medications Lactated Ringer's (Ringers, Lactated) 1,000 mls @ 999 mls/hr IV ONETIME ONE Stop: 07/18/18 09:07 Last Admin: 07/18/18 10:15 Dose: 999 mls/hr Penicillin G Potassium 5 (millunits/ Sodium Chloride) 100 mls @ 200 mls/hr IV ONETIME ONE Stop: 07/18/18 08:59 Last Admin: 07/18/18 08:28 Dose: 200 mls/hr Ropivacaine (Naropin 0.2%) Confirm Administered Dose 100 mls @ as directed .ROUTE .STK-MED ONE Stop: 07/18/18 11:08 Misoprostol (Cytotec) 50 mcg VAG ONETIME ONE Stop: 07/18/18 07:58 Last Admin: 07/18/18 08:02 Dose: 50 mcg - Uterine Contractions Uterine Monitoring Mode: External Custar Contraction Frequency (min): 2-3 Contraction Duration (sec): 30-50 Contraction Intensity: Mild to Moderate Uterine Resting Tone: Soft - Monitoring Monitor Mode: External Ultrasound Heart Rate (FHR) Baseline: 150 Heart Rate (FHR) Variability: Moderate (6-25 bmp) Accelerations: Present, 15x15 Decelerations: None Strip Review: Category I - Vaginal Exam Dilation (cm): 6 Effacement (Percent): 80 Station: -1 Cervical Position: Midposition Sterile Vaginal Exam Performed By: Macey Medina - Labor Progress (Free Text) Labor Progress: 07/18/18 Comfortable with epidural in place, rolling side to side with peanut ball. Last SVE around 1330 /1. Category 1 tracing. Continues to leak clear fluid. <Yesy Ayala - Last Filed: 07/18/18 15:14> Labor Progress Note - VS & Meds Vital Signs: Last Vital Signs Temp 98.8 F 07/18/18 14:35 Pulse 93 07/18/18 15:00 Resp 16 07/18/18 15:00 BP 105/65 07/18/18 15:00 Pulse Ox 98 07/18/18 15:00 Active Medications: Current Medications Acetaminophen (Tylenol) 650 mg PO Q4H PRN PRN Reason: Pain (Mild 1-3) and fever Calcium Carbonate/Glycine (Tums) 1,000 mg PO Q2H PRN PRN Reason: Indigestion Ephedrine Sulfate (Ephedrine Sulfate) 10 mg IVPUSH ASDIRECTED PRN PRN Reason: Hypotension Last Admin: 07/18/18 12:01 Dose: 10 mg Fentanyl (Sublimaze) 100 mcg IVPUSH Q1H PRN PRN Reason: Pain (moderate 4-6) Penicillin G Potassium 2.5 (millunits/ Sodium Chloride) 50 mls @ 100 mls/hr IV Q4H [facility] Last Admin: 07/18/18 12:07 Dose: 100 mls/hr Oxytocin/Sodium Chloride (Pitocin In Ns 20 Units/1,000 Ml) 20 unit in 1,000 mls @ 999 mls/hr IV ASDIRECTED [facility]; Protocol Ondansetron HCl (Zofran) 4 mg IV Q4H PRN PRN Reason: Nausea/Vomiting Oxytocin (Pitocin) 10 unit IM ASDIRECTED [facility] Sodium Chloride (Saline Flush) 10 ml FLUSH ASDIRECTED PRN PRN Reason: Keep Vein Open Discontinued Medications Lactated Ringer's (Ringers, Lactated) 1,000 mls @ 999 mls/hr IV ONETIME ONE Stop: 07/18/18 09:07 Last Admin: 07/18/18 10:15 Dose: 999 mls/hr Penicillin G Potassium 5 (millunits/ Sodium Chloride) 100 mls @ 200 mls/hr IV ONETIME ONE Stop: 07/18/18 08:59 Last Admin: 07/18/18 08:28 Dose: 200 mls/hr Ropivacaine (Naropin 0.2%) Confirm Administered Dose 100 mls @ as directed .ROUTE .STK-MED ONE Stop: 07/18/18 11:08 Oxytocin/Sodium Chloride (Pitocin In Ns 20 Units/1,000 Ml) Confirm Administered Dose 20 unit in 1,000 mls @ as directed .ROUTE .STK-MED ONE Stop: 07/18/18 14:50 Last Admin: 07/18/18 15:09 Dose: Not Given Misoprostol (Cytotec) 50 mcg VAG ONETIME ONE Stop: 07/18/18 07:58 Last Admin: 07/18/18 08:02 Dose: 50 mcg - Labor Progress (Free Text) Labor Progress: I personally performed or re-performed the physical examination and medical decision making. I have verified all student documentation or findings, including history, physical exam and/or medical decision making.Yesy Ayala APRN, CNM, CFNP
[2018-07-18] MEDS ORDERED: Lanolin 100% Cream 40 GM Tube TOP PRN (16:09)
[2018-07-18] MEDS ORDERED: Ibuprofen 200 MG Tab, 24 Tab Bulk Bottle PO PRN (16:09)
[2018-07-18] MEDS ORDERED: Benzocaine 20% Top Spray 56 GM Bottle TOP PRN (16:09)
[2018-07-18] MEDS ORDERED: Acetaminophen 325 MG Tab, 50 Tab Bulk Bottle PO PRN (16:09)
[2018-07-18] MEDS ORDERED: Docusate Sodium 100 MG Cap PO PRN (16:09)
--- NOTE | 2018-07-18 16:23 | PCM.DEL ---
<Macey Medina - Last Filed: 07/18/18 16:14> L & D Note - General Info Date of Service: 07/18/18 () Mother's Due Date: 07/22/18 - Delivery Note Labor: Augmented by ARM (and cytotec) Cervical Ripening Method: Misoprostil Delivery Outcome: Livebirth Delivery Method: Spontaneous Vaginal Delivery-Single Infant Delivery Mode: Spontaneous Presentation: Right Occiput Posterior (ROP) Nuchal Cord: Present Anesthesia Type: Epidural Amniotic Fluid Description: Clear Episiotomy Type: None Laceration: None Placenta: Intact, Spontaneous Cord: 3 Vessels Resuscitation Needed: No : Stimulated, Warmed, [place] Used Score 1 min: 8 Score 5 min: 9 Second Stage Interventions: Reports: Second Nurse Assessed Progress of Descent, Second Nurse Reviewed Contraction Pattern, Second Nurse Reviewed Heart Tones, Encouragement Given, Pushing Effectively, Pushing, McRobert's Position Delivery Comments (Free Text/Narrative):: 07/18/18 33 yo was induced with Cytotec this morning at 39 3/7 weeks. This was an elective induction for a history of a shoulder dystocia with her last baby. She pushed effectively and delivered a viable male at 1555 in ROP position without difficulty. There was a loose nuchal cord x 1 that was easily reduced. Delayed cord clamping done and baby was placed skin to skin. He cried spontaneously and required only stimulation. Apgars 8, 9. She delivered over an intact perineum. No cervical or vaginal lacerations. Placenta delivered spontaneously, intact, 3 vessel cord. FF with scant bleeding. EBL 100 mL. Weight 8#14 oz Labor stages 1: 4521-2389 2: 5390-4897 3: 5002-8320 Induction Criteria - Winslow Score Winslow Score Dilation: 3-4 cm Winslow Score Effacement: 60-70% Winslow Score Infant's Station: -1 ,0 Winslow Score Consistency: Soft Winslow Score Cervix Position: Midposition Winslow Score Total: 9 Winslow Score Presenting Part: Reports: Cephalic - Induction Gestational Age >/= 39 wks: Yes Estimated Pelvis: Reports: Adequate Reassuring Monitoring Strip: Yes Absence of Tachy Systole: Yes - Augmentation Estimated Pelvis: Reports: Adequate Weight Estimated:: Reports: LGA Estimated Weight if LGA: 8 lb 8 oz Reassuring Monitoring Strip: Yes Absence of Tachy Systole: Yes - General Info Date of Service: 07/18/18 Functional Status: Reports: Pain Controlled - Review of Systems General: Reports: No Symptoms HEENT: Reports: No Symptoms Pulmonary: Reports: No Symptoms Cardiovascular: Reports: No Symptoms Gastrointestinal: Reports: No Symptoms Genitourinary: Reports: No Symptoms Musculoskeletal: Reports: No Symptoms Skin: Reports: No Symptoms Neurological: Reports: No Symptoms Psychiatric: Reports: No Symptoms - Patient Data Vitals - Most Recent: Last Vital Signs Temp 37.1 C 07/18/18 14:35 Pulse 91 07/18/18 15:35 Resp 16 07/18/18 15:35 BP 110/56 L 07/18/18 15:35 Pulse Ox 96 07/18/18 15:35 Weight - Most Recent: 227 lb 1.218 oz I&O - Last 24 Hours: Intake & Output 07/18/18 07/18/18 07/18/18 06:59 14:59 22:59 Intake Total 1150 Balance 1150 Lab Results Last 24 Hours: Laboratory Results - last 24 hr 07/18/18 07/18/18 07/18/18 Range/Units 07:50 07:50 07:59 WBC 7.2 (4.5-11.0) K/uL RBC 4.03 (3.30-5.50) M/uL Hgb 10.8 L (12.0-15.0) g/dL Hct 33.8 L (36.0-48.0) % MCV 84 (80-98) fL MCH 27 (27-31) pg MCHC 32 (32-36) % Plt Count 185 (150-400) K/uL Neut % (Auto) 71 H (36-66) % Lymph % (Auto) 20 L (24-44) % Dawes % (Auto) 8 H (2-6) % Eos % (Auto) 1 L (2-4) % Baso % (Auto) 0 (0-1) % Urine Color Yellow Urine Appearance Clear Urine pH 6.0 (4.5-8.0) Ur Specific [place] 1.015 (1.008-1.030) Urine Protein Negative (NEGATIVE) mg/dL Urine Glucose (UA) Normal (NEGATIVE) mg/dL Urine Ketones Negative (NEGATIVE) mg/dL Urine Occult Blood Negative (NEGATIVE) Urine Nitrite Negative (NEGATIVE) Urine Bilirubin Negative (NEGATIVE) Urine Urobilinogen Normal (NORMAL) mg/dL Ur Leukocyte Esterase Small (NEGATIVE) Urine RBC Not seen (0-5) Urine WBC 0-5 (0-5) Ur Epithelial Cells Moderate Amorphous Sediment Not seen Urine Bacteria Few Urine Mucus Few Urine Opiates Screen Negative (NEGATIVE) Ur Oxycodone Screen Negative (NEGATIVE) Urine Methadone Screen Negative (NEGATIVE) Ur Propoxyphene Screen Negative (NEGATIVE) Ur Barbiturates Screen Negative (NEGATIVE) Ur Tricyclics Screen Negative (NEGATIVE) Ur Phencyclidine Scrn Negative (NEGATIVE) Ur Amphetamine Screen Negative (NEGATIVE) U Methamphetamines Scrn Negative (NEGATIVE) Urine MDMA Screen Negative (NEGATIVE) U Benzodiazepines Scrn Negative (NEGATIVE) U Cocaine Metab Screen Negative (NEGATIVE) U Marijuana (THC) Screen Negative (NEGATIVE) Med Orders - Current: Current Medications Acetaminophen (Tylenol) 650 mg PO Q4H PRN PRN Reason: Pain (Mild 1-3) and fever Calcium Carbonate/Glycine (Tums) 1,000 mg PO Q2H PRN PRN Reason: Indigestion Ephedrine Sulfate (Ephedrine Sulfate) 10 mg IVPUSH ASDIRECTED PRN PRN Reason: Hypotension Last Admin: 07/18/18 12:01 Dose: 10 mg Fentanyl (Sublimaze) 100 mcg IVPUSH Q1H PRN PRN Reason: Pain (moderate 4-6) Penicillin G Potassium 2.5 (millunits/ Sodium Chloride) 50 mls @ 100 mls/hr IV Q4H [facility] Last Admin: 07/18/18 12:07 Dose: 100 mls/hr Oxytocin/Sodium Chloride (Pitocin In Ns 20 Units/1,000 Ml) 20 unit in 1,000 mls @ 999 mls/hr IV ASDIRECTED [facility]; Protocol Ondansetron HCl (Zofran) 4 mg IV Q4H PRN PRN Reason: Nausea/Vomiting Oxytocin (Pitocin) 10 unit IM ASDIRECTED [facility] Sodium Chloride (Saline Flush) 10 ml FLUSH ASDIRECTED PRN PRN Reason: Keep Vein Open Discontinued Medications Lactated Ringer's (Ringers, Lactated) 1,000 mls @ 999 mls/hr IV ONETIME ONE Stop: 07/18/18 09:07 Last Admin: 07/18/18 10:15 Dose: 999 mls/hr Penicillin G Potassium 5 (millunits/ Sodium Chloride) 100 mls @ 200 mls/hr IV ONETIME ONE Stop: 07/18/18 08:59 Last Admin: 07/18/18 08:28 Dose: 200 mls/hr Ropivacaine (Naropin 0.2%) Confirm Administered Dose 100 mls @ as directed .ROUTE .STK-MED ONE Stop: 07/18/18 11:08 Oxytocin/Sodium Chloride (Pitocin In Ns 20 Units/1,000 Ml) Confirm Administered Dose 20 unit in 1,000 mls @ as directed .ROUTE .STK-MED ONE Stop: 07/18/18 14:50 Last Admin: 07/18/18 15:09 Dose: Not Given Misoprostol (Cytotec) 50 mcg VAG ONETIME ONE Stop: 07/18/18 07:58 Last Admin: 07/18/18 08:02 Dose: 50 mcg - Exam General: Alert, Oriented HEENT: Pupils Equal, Pupils Reactive, EOMI, Mucous Membr. Moist/[place] Neck: Supple Lungs: Clear to Auscultation, Normal Respiratory Effort Cardiovascular: Regular Rate, Regular Rhythm GI/Abdominal Exam: Normal Bowel Sounds, Soft, Non-Tender, No Organomegaly, No Distention, No Abnormal Bruit, No Mass, Pelvis Stable (Female) Exam: Normal External Exam, Cervical Discharge, Enlarged Uterus, Vaginal Bleeding. No: Cervical Lesions, Vaginal Tears Back Exam: Normal Inspection, Full Range of Motion Extremities: Normal Inspection, Normal Range of Motion, Non-Tender, No Pedal Edema, Normal Capillary Refill Skin: Warm, Dry, Intact Neurological: No New Focal Deficit Psy/Mental Status: Alert, Normal Affect, Normal Mood - Problem List & Annotations (1) Term SNOMED Code(s): 96364062 Code(s): Z34.80 - ENCOUNTER FOR SUPRVSN OF NORMAL , UNSP TRIMESTER Status: Acute Current Visit: Yes (2) Elective induction of labor planned SNOMED Code(s): 643812477 Code(s): BGF5280 - Status: Acute Current Visit: No (3) Positive GBS test SNOMED Code(s): 9405417698839, 4777222643151 Code(s): B95.1 - STREPTOCOCCUS, GROUP B, CAUSING DISEASES CLASSD ELSWHR Status: Acute Current Visit: No (4) Anemia of SNOMED Code(s): 72531497 Code(s): O99.019 - ANEMIA COMPLICATING , UNSPECIFIED TRIMESTER Status: Chronic Priority: Medium Current Visit: No (5) Vaginal delivery SNOMED Code(s): 679622606 Code(s): O80 - ENCOUNTER FOR FULL-TERM UNCOMPLICATED DELIVERY Status: Acute Current Visit: Yes (6) Mother currently breast-feeding SNOMED Code(s): 563869566 Code(s): RRU6550 - Status: Acute Current Visit: Yes - Problem List Review Problem List Initiated/Reviewed/Updated: Yes - My Orders Last 24 Hours: My Active Orders 07/18/18 08:07 Up ad Angelic [RC] ASDIRECTED Acetaminophen [Tylenol] 650 mg PO Q4H PRN Calcium Carbonate [Tums] 1,000 mg PO Q2H PRN Ondansetron [Zofran] 4 mg IV Q4H PRN Sodium Chloride 0.9% [Saline Flush] 10 ml FLUSH ASDIRECTED PRN ePHEDrine [ePHEDrine sulfate] 10 mg IVPUSH ASDIRECTED PRN fentaNYL [Sublimaze] 100 mcg IVPUSH Q1H PRN DVT/VTE Prophylaxis Reflex [OM.PC] Routine Resuscitation Status Routine 07/18/18 08:08 Patient Status [ADT] Routine Communication Order [RC] ASDIRECTED Communication Order [RC] Per Unit Routine Heart Tones [RC] PER UNIT ROUTINE Non Stress Test [RC] Click to Edit Local Anesthetic Infusion Pump [RC] ASDIRECTED Notify Provider [RC] PRN PCEA Epidural [RC] ASDIRECTED PCEA Epidural [RC] ASDIRECTED Urinary Catheter Assessment [RC] ASDIRECTED Verify Patient Consent Obtain [RC] ASDIRECTED Vital Signs [RC] PER UNIT ROUTINE Epidural Catheter Management [OM.PC] Urgent Saline Lock Insert [OM.PC] Routine 07/18/18 08:09 Antiembolic Devices [RC] .Routine VTE/DVT Education [RC] Click to Edit 07/18/18 08:11 Notify Provider Vital Signs [RC] PRN 07/18/18 08:12 Dietary Supplements [RC] BIDMEALS 07/18/18 08:13 Dietary Supplements [RC] BIDMEALS 07/18/18 08:15 Insert Urinary Catheter [OM.PC] ASDIRECTED 07/18/18 12:30 Penicillin G Potassium [Pfizerpen] 2.5 millunits Sodium Chloride 0.9% [Normal Saline] 50 ml IV Q4H 07/18/18 13:00 Oxytocin [Pitocin] 10 unit IM ASDIRECTED 07/18/18 16:09 Consult to Maintenance And Utilities Supervisor [CONS] Routine Acetaminophen [Tylenol Bulk Bottle] 325 mg PO Q4H PRN Benzocaine [Nozo-K-Vksupen 20% Dresher] See Dose Instructions TOP Q4H PRN Docusate Sodium [Colace] 100 mg PO BID PRN Ibuprofen [Motrin Bulk Bottle] 600 mg PO Q6H PRN Lanolin [Lansinoh HPA] 1 gm TOP ASDIRECTED PRN Assess Lochia [WOMSER] Per Unit Routine Assess Uterine Involution [WOMSER] Per Unit Routine 07/18/18 16:10 Patient Status [ADT] Routine Vital Signs [RC] PFP Ice Therapy [OM.PC] Per Unit Routine Perineal Care [OM.PC] Per Unit Routine Peripheral IV Discontinue [OM.PC] Routine Sitz Bath [OM.PC] Per Unit Routine 07/18/18 21:00 Ferrous Sulfate 325 mg PO BID 07/19/18 05:11 CBC WITH AUTO DIFF [HEME] AM - Assessment Assessment:: 07/18/18 33 yo with FF, bleeding scant GBS, treated A positive blood type No vaginal lacerations Plans to breastfeed - Plan Plan:: I personally performed or re-performed the physical examination and medical decision making. I have verified all student documentation or findings, including history, physical exam and/or medical decision making. Yesy Ayala APRN, CNM, MARYSE 07/18/18 Routine cares support Anticipate 48 hour stay <Yesy Ayala - Last Filed: 07/18/18 16:40> - Patient Data Vitals - Most Recent: Last Vital Signs Temp 98.3 F 07/18/18 16:20 Pulse 79 07/18/18 16:35 Resp 16 07/18/18 16:35 BP 111/54 L 07/18/18 16:35 Pulse Ox 95 07/18/18 16:20 I&O - Last 24 Hours: Intake & Output 07/18/18 07/18/18 07/18/18 06:59 14:59 22:59 Intake Total 1150 Balance 1150 Lab Results Last 24 Hours: Laboratory Results - last 24 hr 07/18/18 07/18/18 07/18/18 Range/Units 07:50 07:50 07:59 WBC 7.2 (4.5-11.0) K/uL RBC 4.03 (3.30-5.50) M/uL Hgb 10.8 L (12.0-15.0) g/dL Hct 33.8 L (36.0-48.0) % MCV 84 (80-98) fL MCH 27 (27-31) pg MCHC 32 (32-36) % Plt Count 185 (150-400) K/uL Neut % (Auto) 71 H (36-66) % Lymph % (Auto) 20 L (24-44) % Daw[place] % (Auto) 8 H (2-6) % Eos % (Auto) 1 L (2-4) % Baso % (Auto) 0 (0-1) % Urine Color Yellow Urine Appearance Clear Urine pH 6.0 (4.5-8.0) Ur Specific [place] 1.015 (1.008-1.030) Urine Protein Negative (NEGATIVE) mg/dL Urine Glucose (UA) Normal (NEGATIVE) mg/dL Urine Ketones Negative (NEGATIVE) mg/dL Urine Occult Blood Negative (NEGATIVE) Urine Nitrite Negative (NEGATIVE) Urine Bilirubin Negative (NEGATIVE) Urine Urobilinogen Normal (NORMAL) mg/dL Ur Leukocyte Esterase Small (NEGATIVE) Urine RBC Not seen (0-5) Urine WBC 0-5 (0-5) Ur Epithelial Cells Moderate Amorphous Sediment Not seen Urine Bacteria Few Urine Mucus Few Urine Opiates Screen Negative (NEGATIVE) Ur Oxycodone Screen Negative (NEGATIVE) Urine Methadone Screen Negative (NEGATIVE) Ur Propoxyphene Screen Negative (NEGATIVE) Ur Barbiturates Screen Negative (NEGATIVE) Ur Tricyclics Screen Negative (NEGATIVE) Ur Phencyclidine Scrn Negative (NEGATIVE) Ur Amphetamine Screen Negative (NEGATIVE) U Methamphetamines Scrn Negative (NEGATIVE) Urine MDMA Screen Negative (NEGATIVE) U Benzodiazepines Scrn Negative (NEGATIVE) U Cocaine Metab Screen Negative (NEGATIVE) U Marijuana (THC) Screen Negative (NEGATIVE) Med Orders - Current: Current Medications Acetaminophen (Tylenol) 650 mg PO Q4H PRN PRN Reason: Pain (Mild 1-3) and fever Acetaminophen (Tylenol Bulk Bottle) 325 mg PO Q4H PRN PRN Reason: Pain Benzocaine (Jsgm-[id number]-Tkmxzof 20% Dresher) 0 gm TOP Q4H PRN PRN Reason: Perineal Comfort Measure Calcium Carbonate/Glycine (Tums) 1,000 mg PO Q2H PRN PRN Reason: Indigestion Docusate Sodium (Colace) 100 mg PO BID PRN PRN Reason: Constipation Emollient Ointment (Lansinoh Hpa) 0 gm TOP ASDIRECTED PRN PRN Reason: Sore Nipples Ephedrine Sulfate (Ephedrine Sulfate) 10 mg IVPUSH ASDIRECTED PRN PRN Reason: Hypotension Last Admin: 07/18/18 12:01 Dose: 10 mg Fentanyl (Sublimaze) 100 mcg IVPUSH Q1H PRN PRN Reason: Pain (moderate 4-6) Ferrous Sulfate (Ferrous Sulfate) 325 mg PO BID [facility] Penicillin G Potassium 2.5 (millunits/ Sodium Chloride) 50 mls @ 100 mls/hr IV Q4H [facility] Last Admin: 07/18/18 12:07 Dose: 100 mls/hr Oxytocin/Sodium Chloride (Pitocin In Ns 20 Units/1,000 Ml) 20 unit in 1,000 mls @ 999 mls/hr IV ASDIRECTED [facility]; Protocol Last Admin: 07/18/18 16:00 Dose: 999 mls/hr, 999 mls/hr Ibuprofen (Motrin Bulk Bottle) 600 mg PO Q6H PRN PRN Reason: Pain Ondansetron HCl (Zofran) 4 mg IV Q4H PRN PRN Reason: Nausea/Vomiting Oxytocin (Pitocin) 10 unit IM ASDIRECTED [facility] Sodium Chloride (Saline Flush) 10 ml FLUSH ASDIRECTED PRN PRN Reason: Keep Vein Open Discontinued Medications Lactated Ringer's (Ringers, Lactated) 1,000 mls @ 999 mls/hr IV ONETIME ONE Stop: 07/18/18 09:07 Last Admin: 07/18/18 10:15 Dose: 999 mls/hr Penicillin G Potassium 5 (millunits/ Sodium Chloride) 100 mls @ 200 mls/hr IV ONETIME ONE Stop: 07/18/18 08:59 Last Admin: 07/18/18 08:28 Dose: 200 mls/hr Ropivacaine (Naropin 0.2%) Confirm Administered Dose 100 mls @ as directed .ROUTE .STK-MED ONE Stop: 07/18/18 11:08 Oxytocin/Sodium Chloride (Pitocin In Ns 20 Units/1,000 Ml) Confirm Administered Dose 20 unit in 1,000 mls @ as directed .ROUTE .STK-MED ONE Stop: 07/18/18 14:50 Last Admin: 07/18/18 15:09 Dose: Not Given Misoprostol (Cytotec) 50 mcg VAG ONETIME ONE Stop: 07/18/18 07:58 Last Admin: 07/18/18 08:02 Dose: 50 mcg - My Orders Last 24 Hours: My Active Orders 07/18/18 15:08 Oxytocin/Normal Saline [Pitocin in NS 20 Units/1,000 ML] 20 unit in 1,000 ml IV ASDIRECTED 07/18/18 Breakfast Regular Diet [DIET] 07/18/18 Lunch Clear Liquid Diet [DIET] - Plan Plan:: I personally performed or re-performed the physical examination and medical decision making. I have verified all student documentation or findings, including history, physical exam and/or medical decision making.Yesy Ayala APRN, CNM, CFNP
--- NOTE | 2018-07-18 21:32 | ANES ---
DATE OF SERVICE: 07/18/2018 TIME: 11:20. I was called to the Labor and Delivery unit by Dr. Cady Ayala to evaluate Ms. Brito for a labor epidural. This is her fourth baby and she is approximately 39 weeks and 3 cm. She would like an epidural. The risks and benefits of the procedure were explained to the patient and she wished to proceed with labor epidural. PROCEDURE: She was placed in a sitting position. Her back was prepped x3 with Betadine and 1% lidocaine skin local was used. The epidural was placed at L3-4 using a 17-gauge Tuohy needle in loss of resistance technique. The epidural had very good feel throughout and the epidural space was easily identified. There was negative CSF, negative blood, and negative paresthesias noted. Therefore, a catheter was threaded to 13 cm at the skin. The catheter had negative blood, negative paresthesias, negative CSF as well. A 3 mL test dose of 1.5% lidocaine with epinephrine was given. This test dose was negative. The catheter was then secured with Tegaderm and tape and the patient was placed in a supine position. A 0.2% ropivacaine bolus of 12 mL was given. She had very good relief from the initial bolus, therefore 0.2% ropivacaine drip was started at 12 mL/h. She tolerated the procedure very nicely. Her vital signs remained stable throughout the procedure and nurse was with me for the entire procedure. There were no anesthesia complications noted. We will continue to monitor her throughout her Labor and Delivery stay. Adrien Joiner CRNA /[id number]
[2018-07-19] MEDS: Ferrous Sulfate 325 MG Tab PO SCH ×3 (01:45→21:40)
--- NOTE | 2018-07-19 08:34 | PCM.PNPP ---
<Macey Medina - Last Filed: 07/19/18 08:31> - General Info Date of Service: 07/19/18 (PP day 1) Functional Status: Reports: Pain Controlled - Review of Systems General: Reports: No Symptoms HEENT: Reports: No Symptoms Pulmonary: Reports: No Symptoms Cardiovascular: Reports: No Symptoms Gastrointestinal: Reports: No Symptoms Genitourinary: Reports: No Symptoms Musculoskeletal: Reports: No Symptoms Skin: Reports: No Symptoms Neurological: Reports: No Symptoms Psychiatric: Reports: No Symptoms - General Info Date of Service: 07/19/18 - Patient Data Vital Signs - Most Recent: Last Vital Signs Temp 36.4 C 07/19/18 07:00 Pulse 81 07/19/18 07:00 Resp 18 07/19/18 07:00 BP 98/55 L 07/19/18 07:00 Pulse Ox 98 07/19/18 07:00 Weight - Most Recent: 227 lb 1.218 oz I&O - Last 24 Hours: Intake & Output 07/18/18 07/19/18 07/19/18 22:59 06:59 14:59 Intake Total 1000 Output Total 350 Balance 650 Lab Results - Last 24 Hours: Laboratory Results - last 24 hr 07/19/18 Range/Units 05:03 WBC 10.1 (4.5-11.0) K/uL RBC 3.68 (3.30-5.50) M/uL Hgb 10.0 L (12.0-15.0) g/dL Hct 31.2 L (36.0-48.0) % MCV 85 (80-98) fL MCH 27 (27-31) pg MCHC 32 (32-36) % Plt Count 168 (150-400) K/uL Neut % (Auto) 68 H (36-66) % Lymph % (Auto) 22 L (24-44) % [place] % (Auto) 9 H (2-6) % Eos % (Auto) 1 L (2-4) % Baso % (Auto) 0 (0-1) % Med Orders - Current: Current Medications Acetaminophen (Tylenol) 650 mg PO Q4H PRN PRN Reason: Pain (Mild 1-3) and fever Acetaminophen (Tylenol Bulk Bottle) 325 mg PO Q4H PRN PRN Reason: Pain Last Admin: 07/18/18 18:08 Dose: 325 mg Benzocaine (Dvuq-R-Kyhewjn 20% [place]) 0 gm TOP Q4H PRN PRN Reason: Perineal Comfort Measure Last Admin: 07/18/18 18:07 Dose: 1 spray Calcium Carbonate/Glycine (Tums) 1,000 mg PO Q2H PRN PRN Reason: Indigestion Docusate Sodium (Colace) 100 mg PO BID PRN PRN Reason: Constipation Emollient Ointment (Lansinoh Hpa) 0 gm TOP ASDIRECTED PRN PRN Reason: Sore Nipples Ephedrine Sulfate (Ephedrine Sulfate) 10 mg IVPUSH ASDIRECTED PRN PRN Reason: Hypotension Last Admin: 07/18/18 12:01 Dose: 10 mg Fentanyl (Sublimaze) 100 mcg IVPUSH Q1H PRN PRN Reason: Pain (moderate 4-6) Ferrous Sulfate (Ferrous Sulfate) 325 mg PO BID [facility] Last Admin: 07/19/18 01:45 Dose: Not Given Oxytocin/Sodium Chloride (Pitocin In Ns 20 Units/1,000 Ml) 20 unit in 1,000 mls @ 999 mls/hr IV ASDIRECTED [facility]; Protocol Last Admin: 07/18/18 16:00 Dose: 999 mls/hr, 999 mls/hr Ibuprofen (Motrin Bulk Bottle) 600 mg PO Q6H PRN PRN Reason: Pain Last Admin: 07/18/18 18:08 Dose: 600 mg Ondansetron HCl (Zofran) 4 mg IV Q4H PRN PRN Reason: Nausea/Vomiting Oxytocin (Pitocin) 10 unit IM ASDIRECTED [facility] Sodium Chloride (Saline Flush) 10 ml FLUSH ASDIRECTED PRN PRN Reason: Keep Vein Open Discontinued Medications Lactated Ringer's (Ringers, Lactated) 1,000 mls @ 999 mls/hr IV ONETIME ONE Stop: 07/18/18 09:07 Last Admin: 07/18/18 10:15 Dose: 999 mls/hr Penicillin G Potassium 5 (millunits/ Sodium Chloride) 100 mls @ 200 mls/hr IV ONETIME ONE Stop: 07/18/18 08:59 Last Admin: 07/18/18 08:28 Dose: 200 mls/hr Penicillin G Potassium 2.5 (millunits/ Sodium Chloride) 50 mls @ 100 mls/hr IV Q4H [facility] Last Admin: 07/18/18 16:47 Dose: Not Given Ropivacaine (Naropin 0.2%) Confirm Administered Dose 100 mls @ as directed .ROUTE .STK-MED ONE Stop: 07/18/18 11:08 Oxytocin/Sodium Chloride (Pitocin In Ns 20 Units/1,000 Ml) Confirm Administered Dose 20 unit in 1,000 mls @ as directed .ROUTE .STK-MED ONE Stop: 07/18/18 14:50 Last Admin: 07/18/18 15:09 Dose: Not Given Misoprostol (Cytotec) 50 mcg VAG ONETIME ONE Stop: 07/18/18 07:58 Last Admin: 07/18/18 08:02 Dose: 50 mcg - Infant Interaction Disposition, : in Room with Family Infant Interaction: Holding Infant Infant Feeding: Breastfed ; Nursed Well Support Person: , Mother - Recovery Exam Fundal Tone: Firm Fundal Level: 1 Fingerbreadths Above Umbilicus Fundal Placement: Left Lochia Amount: Moderate Lochia Color: Rubra/Red Perineum Description: Intact, Minimal Bruising/Swelling Episiotomy/Laceration: None - Exam General: Alert, Oriented HEENT: Pupils Equal Neck: Supple Lungs: Clear to Auscultation, Normal Respiratory Effort Cardiovascular: Regular Rate, Regular Rhythm GI/Abdominal Exam: Normal Bowel Sounds, Soft, Non-Tender, No Organomegaly, No Distention, No Abnormal Bruit, No Mass, Pelvis Stable Extremities: Normal Inspection, Normal Range of Motion, Non-Tender, No Pedal Edema, Normal Capillary Refill Skin: Warm, Dry, Intact Wound/Incisions: Healing Well Neurological: No New Focal Deficit Psy/Mental Status: Alert, Normal Affect, Normal Mood - Problem List & Annotations (1) Term SNOMED Code(s): 22898033 Code(s): Z34.80 - ENCOUNTER FOR SUPRVSN OF NORMAL , UNSP TRIMESTER Status: Acute Current Visit: Yes (2) Elective induction of labor planned SNOMED Code(s): 347490681 Code(s): KKF6602 - Status: Acute Current Visit: No (3) Positive GBS test SNOMED Code(s): 2509243275771, 1385963641135 Code(s): B95.1 - STREPTOCOCCUS, GROUP B, CAUSING DISEASES CLASSD ELSWHR Status: Acute Current Visit: No (4) Anemia of SNOMED Code(s): 29939452 Code(s): O99.019 - ANEMIA COMPLICATING , UNSPECIFIED TRIMESTER Status: Chronic Priority: Medium Current Visit: No (5) Vaginal delivery SNOMED Code(s): 860269773 Code(s): O80 - ENCOUNTER FOR FULL-TERM UNCOMPLICATED DELIVERY Status: Acute Current Visit: Yes (6) Mother currently breast-feeding SNOMED Code(s): 613615557 Code(s): JOL2934 - Status: Acute Current Visit: Yes - Problem List Review Problem List Initiated/Reviewed/Updated: Yes - My Orders Last 24 Hours: My Active Orders 07/18/18 08:07 Up ad Angelic [RC] ASDIRECTED Acetaminophen [Tylenol] 650 mg PO Q4H PRN Calcium Carbonate [Tums] 1,000 mg PO Q2H PRN Ondansetron [Zofran] 4 mg IV Q4H PRN Sodium Chloride 0.9% [Saline Flush] 10 ml FLUSH ASDIRECTED PRN ePHEDrine [ePHEDrine sulfate] 10 mg IVPUSH ASDIRECTED PRN fentaNYL [Sublimaze] 100 mcg IVPUSH Q1H PRN DVT/VTE Prophylaxis Reflex [OM.PC] Routine Resuscitation Status Routine 07/18/18 08:08 Patient Status [ADT] Routine Notify Provider [RC] PRN Vital Signs [RC] Q4H Epidural Catheter Management [OM.PC] Urgent Saline Lock Insert [OM.PC] Routine 07/18/18 08:09 Antiembolic Devices [RC] .Routine VTE/DVT Education [RC] Click to Edit 07/18/18 08:11 Notify Provider Vital Signs [RC] PRN 07/18/18 08:12 Dietary Supplements [RC] BIDMEALS 07/18/18 08:13 Dietary Supplements [RC] BIDMEALS 07/18/18 08:15 Insert Urinary Catheter [OM.PC] ASDIRECTED 07/18/18 13:00 Oxytocin [Pitocin] 10 unit IM ASDIRECTED 07/18/18 16:09 Consult to Relations Mgr [CONS] Routine Acetaminophen [Tylenol Bulk Bottle] 325 mg PO Q4H PRN Benzocaine [Gkda-S-Rdpdsns 20% [place]] See Dose Instructions TOP Q4H PRN Docusate Sodium [Colace] 100 mg PO BID PRN Ibuprofen [Motrin Bulk Bottle] 600 mg PO Q6H PRN Lanolin [Lansinoh HPA] 0 gm TOP ASDIRECTED PRN Assess Lochia [WOMSER] Per Unit Routine Assess Uterine Involution [WOMSER] Per Unit Routine 07/18/18 16:10 Patient Status [ADT] Routine Vital Signs [RC] PFP Ice Therapy [OM.PC] Per Unit Routine Perineal Care [OM.PC] Per Unit Routine Peripheral IV Discontinue [OM.PC] Routine Sitz Bath [OM.PC] Per Unit Routine 07/18/18 21:00 Ferrous Sulfate 325 mg PO BID - Assessment Assessment:: 07/18/18 33 yo with FF, bleeding scant GBS, treated A positive blood type No vaginal lacerations Plans to breastfeed 07/19/18 Day 1 PP FF, bleeding light, no clots, minimal cramping going well Hgb 10.8 predelivery to 10.0 today, asymptomatic - Plan Plan:: I personally performed or re-performed the physical examination and medical decision making. I have verified all student documentation or findings, including history, physical exam and/or medical decision making.Yesy Ayala APRN, CNM, MARYSE 07/19/18 Routine cares support as needed Anticipate discharge home tomorrow <Yesy Ayala - Last Filed: 07/20/18 08:19> - Patient Data Vital Signs - Most Recent: Last Vital Signs Temp 97.6 F 07/20/18 07:05 Pulse 66 07/20/18 07:05 Resp 16 07/20/18 07:05 BP 91/40 L 07/20/18 07:05 Pulse Ox 96 07/20/18 07:05 Med Orders - Current: Current Medications Acetaminophen (Tylenol Bulk Bottle) 325 - 650 mg PO Q4H PRN PRN Reason: Pain Benzocaine (Pseo-N-Dihbshg 20% [place]) 0 gm TOP Q4H PRN PRN Reason: Perineal Comfort Measure Last Admin: 07/18/18 18:07 Dose: 1 spray Calcium Carbonate/Glycine (Tums) 1,000 mg PO Q2H PRN PRN Reason: Indigestion Docusate Sodium (Colace) 100 mg PO BID PRN PRN Reason: Constipation Emollient Ointment (Lansinoh Hpa) 0 gm TOP ASDIRECTED PRN PRN Reason: Sore Nipples Ferrous Sulfate (Ferrous Sulfate) 325 mg PO BID [facility] Last Admin: 07/19/18 21:40 Dose: 325 mg Ibuprofen (Motrin Bulk Bottle) 600 mg PO Q6H PRN PRN Reason: Pain Last Admin: 07/18/18 18:08 Dose: 600 mg Ondansetron HCl (Zofran) 4 mg IV Q4H PRN PRN Reason: Nausea/Vomiting Sodium Chloride (Saline Flush) 10 ml FLUSH ASDIRECTED PRN PRN Reason: Keep Vein Open Discontinued Medications Acetaminophen (Tylenol Bulk Bottle) 325 mg PO Q4H PRN PRN Reason: Pain Last Admin: 07/18/18 18:08 Dose: 325 mg Ephedrine Sulfate (Ephedrine Sulfate) 10 mg IVPUSH ASDIRECTED PRN PRN Reason: Hypotension Last Admin: 07/18/18 12:01 Dose: 10 mg Fentanyl (Sublimaze) 100 mcg IVPUSH Q1H PRN PRN Reason: Pain (moderate 4-6) Lactated Ringer's (Ringers, Lactated) 1,000 mls @ 999 mls/hr IV ONETIME ONE Stop: 07/18/18 09:07 Last Admin: 07/18/18 10:15 Dose: 999 mls/hr Penicillin G Potassium 5 (millunits/ Sodium Chloride) 100 mls @ 200 mls/hr IV ONETIME ONE Stop: 07/18/18 08:59 Last Admin: 07/18/18 08:28 Dose: 200 mls/hr Penicillin G Potassium 2.5 (millunits/ Sodium Chloride) 50 mls @ 100 mls/hr IV Q4H [facility] Last Admin: 07/18/18 16:47 Dose: Not Given Ropivacaine (Naropin 0.2%) Confirm Administered Dose 100 mls @ as directed .ROUTE .ST-MED ONE Stop: 07/18/18 11:08 Oxytocin/Sodium Chloride (Pitocin In Ns 20 Units/1,000 Ml) Confirm Administered Dose 20 unit in 1,000 mls @ as directed .ROUTE .STK-MED ONE Stop: 07/18/18 14:50 Last Admin: 07/18/18 15:09 Dose: Not Given Oxytocin/Sodium Chloride (Pitocin In Ns 20 Units/1,000 Ml) 20 unit in 1,000 mls @ 999 mls/hr IV ASDIRECTED [facility]; Protocol Last Admin: 07/18/18 16:00 Dose: 999 mls/hr, 999 mls/hr Misoprostol (Cytotec) 50 mcg VAG ONETIME ONE Stop: 07/18/18 07:58 Last Admin: 07/18/18 08:02 Dose: 50 mcg Oxytocin (Pitocin) 10 unit IM ASDIRECTED [facility] - Plan Plan:: I personally performed or re-performed the physical examination and medical decision making. I have verified all student documentation or findings, including history, physical exam and/or medical decision making.Yesy Ayala APRN, AMANDEEP, CFNP
[2018-07-19] MEDS ORDERED: Acetaminophen 325 MG Tab, 50 Tab Bulk Bottle PO PRN (10:00)
[2018-07-20 07:06] VITALS: BP 91/40
--- NOTE | 2018-07-20 08:22 | PCM.PNPP ---
- General Info Date of Service: 07/20/18 (PPD 2 D/C) Admission Dx/Problem (Free Text): Patient Status Order with Admit Dx/Problem 07/18/18 08:08 Patient Status [ADT] Routine Admission Diagnosis/Problem Admission Diagnosis/Problem Term Functional Status: Reports: Pain Controlled - Review of Systems General: Reports: No Symptoms HEENT: Reports: No Symptoms Pulmonary: Reports: No Symptoms Cardiovascular: Reports: No Symptoms Gastrointestinal: Reports: No Symptoms Genitourinary: Reports: No Symptoms Musculoskeletal: Reports: No Symptoms Skin: Reports: No Symptoms Neurological: Reports: No Symptoms Psychiatric: Reports: No Symptoms - Patient Data Vital Signs - Most Recent: Last Vital Signs Temp 97.6 F 07/20/18 07:05 Pulse 66 07/20/18 07:05 Resp 16 07/20/18 07:05 BP 91/40 L 07/20/18 07:05 Pulse Ox 96 07/20/18 07:05 Weight - Most Recent: 227 lb 1.218 oz Med Orders - Current: Current Medications Acetaminophen (Tylenol Bulk Bottle) 325 - 650 mg PO Q4H PRN PRN Reason: Pain Benzocaine (Gohh-Z-Ygiseap 20% [place]) 0 gm TOP Q4H PRN PRN Reason: Perineal Comfort Measure Last Admin: 07/18/18 18:07 Dose: 1 spray Calcium Carbonate/Glycine (Tums) 1,000 mg PO Q2H PRN PRN Reason: Indigestion Docusate Sodium (Colace) 100 mg PO BID PRN PRN Reason: Constipation Emollient Ointment (Lansinoh Hpa) 0 gm TOP ASDIRECTED PRN PRN Reason: Sore Nipples Ferrous Sulfate (Ferrous Sulfate) 325 mg PO BID [facility] Last Admin: 07/19/18 21:40 Dose: 325 mg Ibuprofen (Motrin Bulk Bottle) 600 mg PO Q6H PRN PRN Reason: Pain Last Admin: 07/18/18 18:08 Dose: 600 mg Ondansetron HCl (Zofran) 4 mg IV Q4H PRN PRN Reason: Nausea/Vomiting Sodium Chloride (Saline Flush) 10 ml FLUSH ASDIRECTED PRN PRN Reason: Keep Vein Open Discontinued Medications Acetaminophen (Tylenol Bulk Bottle) 325 mg PO Q4H PRN PRN Reason: Pain Last Admin: 07/18/18 18:08 Dose: 325 mg Ephedrine Sulfate (Ephedrine Sulfate) 10 mg IVPUSH ASDIRECTED PRN PRN Reason: Hypotension Last Admin: 07/18/18 12:01 Dose: 10 mg Fentanyl (Sublimaze) 100 mcg IVPUSH Q1H PRN PRN Reason: Pain (moderate 4-6) Lactated Ringer's (Ringers, Lactated) 1,000 mls @ 999 mls/hr IV ONETIME ONE Stop: 07/18/18 09:07 Last Admin: 07/18/18 10:15 Dose: 999 mls/hr Penicillin G Potassium 5 (millunits/ Sodium Chloride) 100 mls @ 200 mls/hr IV ONETIME ONE Stop: 07/18/18 08:59 Last Admin: 07/18/18 08:28 Dose: 200 mls/hr Penicillin G Potassium 2.5 (millunits/ Sodium Chloride) 50 mls @ 100 mls/hr IV Q4H [facility] Last Admin: 07/18/18 16:47 Dose: Not Given Ropivacaine (Naropin 0.2%) Confirm Administered Dose 100 mls @ as directed .ROUTE .STK-MED ONE Stop: 07/18/18 11:08 Oxytocin/Sodium Chloride (Pitocin In Ns 20 Units/1,000 Ml) Confirm Administered Dose 20 unit in 1,000 mls @ as directed .ROUTE .STK-MED ONE Stop: 07/18/18 14:50 Last Admin: 07/18/18 15:09 Dose: Not Given Oxytocin/Sodium Chloride (Pitocin In Ns 20 Units/1,000 Ml) 20 unit in 1,000 mls @ 999 mls/hr IV ASDIRECTED [facility]; Protocol Last Admin: 07/18/18 16:00 Dose: 999 mls/hr, 999 mls/hr Misoprostol (Cytotec) 50 mcg VAG ONETIME ONE Stop: 07/18/18 07:58 Last Admin: 07/18/18 08:02 Dose: 50 mcg Oxytocin (Pitocin) 10 unit IM ASDIRECTED [facility] - Interaction Infant Disposition, : [place] in Room with Family Interaction: Holding Feeding: Breastfed ; Nursed Well Support Person: , Mother - Recovery Exam Fundal Tone: Firm Fundal Level: 2 Fingerbreadths Below Umbilicus Fundal Placement: Midline Lochia Amount: Small Lochia Color: Serosa/[place] Perineum Description: Intact, Minimal Bruising/Swelling Episiotomy/Laceration: None Bladder Status: Voiding - Exam General: Alert, Oriented HEENT: Pupils Equal Neck: Supple Lungs: Clear to Auscultation, Normal Respiratory Effort Cardiovascular: Regular Rate, Regular Rhythm GI/Abdominal Exam: Normal Bowel Sounds, Soft, Non-Tender, No Organomegaly, No Distention, No Abnormal Bruit, No Mass, Pelvis Stable Extremities: Normal Inspection, Normal Range of Motion, Non-Tender, No Pedal Edema, Normal Capillary Refill Skin: Warm, Dry, Intact Wound/Incisions: Healing Well Neurological: No New Focal Deficit Psy/Mental Status: Alert, Normal Affect, Normal Mood - Problem List & Annotations (1) Term SNOMED Code(s): 22974129 Code(s): Z34.80 - ENCOUNTER FOR SUPRVSN OF NORMAL , UNSP TRIMESTER Status: Acute Current Visit: Yes (2) Vaginal delivery SNOMED Code(s): 834537260 Code(s): O80 - ENCOUNTER FOR FULL-TERM UNCOMPLICATED DELIVERY Status: Acute Current Visit: Yes (3) Mother currently breast-feeding SNOMED Code(s): 084119978 Code(s): JEP4201 - Status: Acute Current Visit: Yes (4) Positive GBS test SNOMED Code(s): 0330855027078, 5800066948530 Code(s): B95.1 - STREPTOCOCCUS, GROUP B, CAUSING DISEASES CLASSD ELSWHR Status: Acute Current Visit: No (5) Elective induction of labor planned SNOMED Code(s): 729059307 Code(s): OFU0137 - Status: Acute Current Visit: No (6) Anemia of SNOMED Code(s): 98505483 Code(s): O99.019 - ANEMIA COMPLICATING , UNSPECIFIED TRIMESTER Status: Chronic Priority: Medium Current Visit: No - Problem List Review Problem List Initiated/Reviewed/Updated: Yes - Assessment Assessment:: 07/18/18 33 yo with FF, bleeding scant GBS, treated A positive blood type No vaginal lacerations Plans to breastfeed 07/19/18 Day 1 PP FF, bleeding light, no clots, minimal cramping going well Hgb 10.8 predelivery to 10.0 today, asymptomatic 07/20/18 PPD 2 D/C no problems Mood happy without problem Voiding Light flow Home today See me in 76 weeks for a post visit - Plan Plan:: I personally performed or re-performed the physical examination and medical decision making. I have verified all student documentation or findings, including history, physical exam and/or medical decision making.Yesy Ayala APRN, CNM, CFPRIYANK 07/20/18 plan Home today 6 weeks PPD visit in clinic
[2018-07-20] MEDS: Ferrous Sulfate 325 MG Tab PO SCH (09:31)
== END 2018-07-20 11:40 | disposition home or self-care (01) | DRG 560 ==
LOC: JP.OB 07:11 → OBSVTOIN 15:55 → JP.MS 15:56
PROVIDERS: ADMIT Nurse Practitioner Family; ATTEND Nurse Practitioner Family
PROC: 10E0XZZ Delivery of Products of Conception, External Approach (ICD-10-PCS; principal; 2018-07-18)
PROC: 10907ZC Drainage of Amniotic Fluid, Therapeutic from Products of Conception, Via Natural or Artificial Opening (ICD-10-PCS; 2018-07-18)
PROC: 3E0P7VZ Introduction of Hormone into Female Reproductive, Via Natural or Artificial Opening (ICD-10-PCS; 2018-07-18)
PROC: 3E033VJ Introduction of Other Hormone into Peripheral Vein, Percutaneous Approach (ICD-10-PCS; 2018-07-18)
PROC: 00HU33Z Insertion of Infusion Device into Spinal Canal, Percutaneous Approach (ICD-10-PCS; 2018-07-18)
DX: O69.81X0 Labor and delivery complicated by cord around neck, without compression, not applicable or unspecified (principal); O99.824 Streptococcus B carrier state complicating childbirth; O99.02 Anemia complicating childbirth; O36.60X0 Maternal care for excessive fetal growth, unspecified trimester, not applicable or unspecified; Z3A.39 39 weeks gestation of pregnancy; Z37.0 Single live birth; Z87.59 Personal history of other complications of pregnancy, childbirth and the puerperium; Z87.891 Personal history of nicotine dependence; Z88.5 Allergy status to narcotic agent
CPT/HCPCS: 36415; 51702; 59409; 80305-QW; 81001; 85025; A9270-GY; J2540; J2590; J2795; J7030; J7050; J7120